=== PATIENT | male | born 1945 | race Caucasian/White ===

== ENCOUNTER 2022-04-05 10:10 | Observation (INO) | payer OTHER, SELFPAY ==
[2022-04-05] VITALS (9 sets, daily range): BP systolic 117–156; BP diastolic 81–102; PULSE 79–118; RESP 14–27; TEMP 36.4–36.6; O2SAT 91–98; BMI 32.3
--- NOTE | 2022-04-05 10:12 | XRR_ITS ---
PROCEDURE INFORMATION: Exam: XR Chest Exam date and time: 04/05/2022 10:45 AM Age: 76 years old Clinical indication: Pain; Angina pectoris; Prior surgery; Surgery type: Heart ablation; Additional info: Chest pain TECHNIQUE: Imaging protocol: Radiologic exam of the chest. Views: 1 view. Total images: 2 COMPARISON: CR Chest 1 [place] [id number] 01/01/2019 10:29 AM FINDINGS: Lungs: Unremarkable. No consolidation. Pleural spaces: Unremarkable. No pleural effusion. No pneumothorax. Heart/Mediastinum: Unremarkable. No cardiomegaly. Bones/joints: Old right rib fractures are evident. Osseous structures are unchanged from the prior exam. XR/XR chest 1V portable [id number] IMPRESSION: No acute cardiopulmonary process.
--- NOTE | 2022-04-05 10:22 | ED_ITS ---
HPI - Chest Pain General: Chief Complaint: Chest Pain Stated Complaint: chest pain Time Seen by Provider: 04/05/22 10:12 Source: patient Mode of arrival: ambulatory Limitations: no limitations History of Present Illness: 76-year-old male presents emergency room with complaint of chest discomfort. He has been having more frequently. A few weeks ago he thought he over exerted himself in the heat later when he seen his primary care doctor they told he had had an VT and set him up for follow-up with cardiology but has not yet been completed. since then he has intermittently had chest discomfort. Initially it was brought on by exertion relieved by rest. More recently he has not noticed anything that makes it better or worse it will come on while at rest and will resolve spontaneously he is still having some discomfort now. He has a known history of atrial fibrillation previously had an ablation. He is on apixaban and was recently restarted on something for rate control I believe after talking to him it is Toprol but we have yet to confirm that. He denies any swelling in his legs or feet he is not had any orthopnea. MD complaint: chest pain Timing of current episode: episodic Prior episodes: Yes Onset: during rest and during exertion Pain location: left chest Pain radiation: none and left shoulder Severity: moderate Quality: tightness, aching and heaviness Relieving factors: rest Exacerbating factors: exertion Associated symptoms: Reports dyspnea; Deny abdominal pain, fever(s), nausea or vomiting Risk Factors: Coronary artery disease risk factors: hypertension Review of Systems Const: Denies: fever(s), chills, body aches, change in appetite, fatigue or malaise ENMT: Denies: throat pain, ear or mastoid pain, nasal discharge or nasal congestion Card: Reports: chest pain; Denies: edema, dyspnea on exertion or orthopnea Resp: Reports: dyspnea; Denies: productive cough or non-productive cough GI: Denies: abdominal pain, nausea, vomiting, hematemesis, coffee ground emesis, diarrhea, constipation, bloating, hematochezia or melena : Denies: flank pain, difficulty urinating, dysuria, urinary frequency or urinary urgency Skin/Breast: Denies: rash or pruritus PFS ED PFSH: Medical History Asthma Atrial fibrillation intermittent Degenerative disc disease Has associated chronic back pain History of cardioversion at time of initial afib diagnosis some years ago as well as in [address] 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 Physical Exam Const: GENERAL APPEARANCE: cooperative and comfortable LION ENTATION/CONSCIOUSNESS: Yes awake, Yes oriented to person, Yes oriented to place and Yes oriented to time HENMT: COMMON NORMALS: normocephalic, atraumatic and hearing grossly normal bilaterally HEAD & SCALP: normocephalic and atraumatic Eye: COMMON NORMALS: Equal, round and reactive pupils present, EOMs intact bilaterally, conjunctivae normal and no scleral icterus CONJUNCTIVA: Yes conjunctivae normal PUPIL: Yes Equal, round and reactive pupils present Resp: COMMON NORMALS: normal respiratory effort, No retractions, No use of accessory muscles and clear to auscultation bilaterally AUSCULTATION: clear to auscultation bilaterally Cardio: COMMON NORMALS: regular rate, regular rhythm and No murmurs present (Cardio) RATE: regular rate RHYTHM: regular rhythm GI: COMMON NORMALS: Soft to palpation and No hepatosplenomegaly present AUSCULTATION: Yes normoactive bowel sounds PALPATION: Yes Soft to palpation, No Tenderness to palpation present (GI), No Guarding due to palpation present (GI) and Yes No hepatosplenomegaly present Extremity: COMMON NORMALS: normal to inspection, capillary refill normal, no clubbing, cyanosis or edema, no calf tenderness and no pedal edema Neuro: SENSORIUM/ORIENTATION: Yes oriented to person, Yes oriented to place and Yes oriented to time Skin: COMMON NORMALS: no rashes or lesions noted GENERAL SKIN EXAM: no rashes or lesions noted Course Vital Signs: Vital signs: Vital Signs Temperature 98.2 F 04/06/22 04:00 Pulse Rate 76 04/06/22 05:49 Respiratory Rate 22 H 04/06/22 04:00 Blood Pressure 103/69 04/06/22 04:00 Pulse Oximetry 97 04/06/22 04:00 Oxygen Delivery Me thod 04/05/22 21:17 MDM - Chest Pain Medical Decision Making EKG labs and imaging reviewed as found on the chart, no ST depression or elevation on his EKGs he is in atrial fibrillation.. His troponins are negative. His symptoms set and progression and changed to the point where he is getting the chest discomfort now or at rest is concerning. Patiently placed on observation to complete to rule out and have a stress test done. Discussed with hospitalist orders written Medical Records I reviewed the patient's medical records. Lab Data I reviewed the patient's lab results. : 04/05/22 10:35 04/05/22 11:08 Radiology Impressions Chest X-Ray 04/05/22 10:12 IMPRESSION: No acute cardiopulmonary process. Laboratory Results WBC 6.1 10^3/uL (4.0-10.0) 04/05/22 10:35 RBC 5.31 10^6/uL (4.1-5.3) H 04/05/22 10:35 Hgb 16.6 g/dL (11.7-16.6) 04/05/22 10:35 Hct 49.3 % (42.0-52.0) 04/05/22 10:35 MCV 92.8 fl (80-94) 04/05/22 10:35 MCH 31.3 pg (28.0-34.0) 04/05/22 10:35 MCHC 33.7 g/dL (30.0-36.0) 04/05/22 10:35 RDW 13.3 % (12.1-15.1) 04/05/22 10:35 Plt Count 178 10^3/cmm (130-400) 04/05/22 10:35 MPV 11.9 fL (7.4-10.4) H 04/05/22 10:35 Neut % (Auto) 61.6 % 04/05/22 10:35 Lymph % (Auto) 26.7 % 04/05/22 10:35 [place] % (Auto) 8.1 % 04/05/22 10:35 Eos % (Auto) 2.6 % 04/05/22 10:35 Baso % (Auto) 0.8 % 04/05/22 10:35 Neut # (Auto) 3.78 10^3/uL (1.8-7.7) 04/05/22 10:35 Lymph # (Auto) 1.6 10^3/uL (0.8-4.8) 04/05/22 10:35 [place] # (Auto) 0.5 10^3/uL (0.2-0.9) 04/05/22 10:35 Eos # (Auto) 0.2 10^3/uL (0.0-0.8) 04/05/22 10:35 Baso # (Auto) 0.1 10^3/uL (0.0-0.1) 04/05/22 10:35 Nucleated RBC % (auto) 0 % 04/05/22 10:35 Nucleated RBCs # 0.0 /100WBC 04/05/22 10:35 Sodium 139 mmol/L (136-145) 04/05/22 11:08 Potassium 4.6 mmol/L (3.5-5.1) 04/05/22 11:08 Chloride 104 mmol/L (98-107) 04/05/22 11:08 Carbon Dioxide 28 mmol/L (22-29) 04/05/22 11:08 Anion Gap 11.6 (5-19) 04/05/22 11:08 BUN 13 mg/dL (8-23) 04/05/22 11:08 Creatinine 1.1 mg/dL (0.7-1.2) 04/05/22 11:08 GFR Calculation Not Reportable 04/05/22 11:08 Glucose 100 mg/dL (65-115) 04/05/22 11:08 Calculated Osmolality 288 mOsm/kg (285-295) 04/05/22 11:08 Calcium 8.9 mg/dL (8.5-10.5) 04/05/22 11:08 Total Bilirubin 0.7 mg/dL (0.15-1.2) 04/05/22 11:08 AST 13 U/L (0-40) 04/05/22 11:08 ALT 12 U/L (0-41) 04/05/22 11:08 Alkaline Phosphatase 61 U/L (40-130) 04/05/22 11:08 Troponin T Baseline 13 ng/L (0-15) 04/05/22 11:08 Troponin T 120 Minute 9.61 ng/L (0-15) 04/05/22 13:00 Delta Troponin T -3.39 ABS# (0-10) L 04/05/22 13:00 Total Protein 6.7 g/dL (6.6-8.7) 04/05/22 11:08 Albumin 3.8 g/dL (3.5-5.2) 04/05/22 11:08 Globulin 2.9 g/dL (1.3-4.6) 04/05/22 11:08 Discharge Plan Discharge Patient Disposition: Placed in Observation Admit Provider: Palak Caba Clinical Impression: Chest pain Qualifiers: Chest pain type: chest pain due to myocardial ischemia Ischemic chest pain type: unstable angina pectoris Qualified Code(s): I20.0 - Unstable angina HTN (hypertension) Qualifiers: Hypertension type: primary hypertension Qualified Code(s): I10 - Essential (primary) hypertension Atrial fibrillation Qualifiers: Atrial fibrillation type: paroxysmal Qualified Code(s): I48.0 - Paroxysmal atrial fibrillation Coding Level of Care Code ED Human Resources Generalist for [facility] Fwd Exam Comprehensive
--- NOTE | 2022-04-05 10:23 | ECG_ITS ---
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 Measurements Intervals [place] Rate: 93 P: [place]: QRS: 13 QRSD: 121 T: 21 QT: 346 QTc: 431 Interpretive Statements ATRIAL FIBRILLATION MODERATE INTRAVENTRICULAR CONDUCTION DELAY [110+ ms QRS DURATION] Compared to ECG 01/01/2019 12:55:21 Intraventricular conduction delay now present Myocardial infarct finding no longer present Electronically Signed On 04-05-2022 17:50:09 CDT by Red Hunt M.D. [id number]
[2022-04-05] MEDS: metoprolol tartrate 25 mg Tablet PO (10:48)
[2022-04-05] MEDS: metoprolol tartrate 1 mg/1 mL SDV 5 mL 5 MG IVP (10:49)
[2022-04-05] MEDS: nitroglycerin 1 gm/inch oint Pkt 1 INCH TOPICAL ×2 (10:50→17:16)
[2022-04-05 10:53] LABS: Basophils # 0.1 10^3/uL (0.0-0.1); Basophils % 0.8 %; Eosinophils # 0.2 10^3/uL (0.0-0.8); Eosinophils % 2.6 %; Hematocrit 49.3 % (42.0-52.0); Hemoglobin 16.6 g/dL (11.7-16.6); Lymphocytes # 1.6 10^3/uL (0.8-4.8); Lymphocytes % 26.7 %; Mean Corpuscular HGB Conc 33.7 g/dL (30.0-36.0); Mean Corpuscular Hemoglobin 31.3 pg (28.0-34.0); Mean Corpuscular Volume 92.8 fl (80-94); Mean Platelet Volume 11.9 fL (7.4-10.4); Monocytes # 0.5 10^3/uL (0.2-0.9); Monocytes % 8.1 %; Neutrophils # 3.78 10^3/uL (1.8-7.7); Neutrophils % 61.6 %; Nucleated Red Blood Cells % 0 %; Platelet Count 178 10^3/cmm (130-400); Red Blood Count 5.31 10^6/uL (4.1-5.3); Red Cell Distribution Width 13.3 % (12.1-15.1); White Blood Count 6.1 10^3/uL (4.0-10.0)
[2022-04-05 11:37] LABS: Alanine Aminotransferase 12 U/L (0-41); Albumin Level 3.8 g/dL (3.5-5.2); Alkaline Phosphatase 61 U/L (40-130); Anion Gap 11.6 (5-19); Aspartate Amino Transferase 13 U/L (0-40); Blood Urea Nitrogen 13 mg/dL (8-23); Calcium 8.9 mg/dL (8.5-10.5); Carbon Dioxide 28 mmol/L (22-29); Chloride 104 mmol/L (98-107); Globulin 2.9 g/dL (1.3-4.6); Glucose 100 mg/dL (65-115); Osmolality Calculated 288 mOsm/kg (285-295); Potassium 4.6 mmol/L (3.5-5.1); Sodium 139 mmol/L (136-145); Total Bilirubin 0.7 mg/dL (0.15-1.2); Total Protein 6.7 g/dL (6.6-8.7)
[2022-04-05 11:41] LABS: Troponin(5th) Baseline 13 ng/L (0-15)
--- NOTE | 2022-04-05 12:29 | ECG_ITS ---
[facility] Test Date: 2022-04-05 Pat Name: Zachary Ahumada Department: Room: Gender: Male Rn Paralegal: : 1945 Requested By: Mirian Lane Order Number: [id number] Gretchen MD: Red Hunt M.D. Measurements Intervals [place] Rate: 78 P: [place]: QRS: 27 QRSD: 105 T: 21 QT: 359 QTc: 410 Interpretive Statements ATRIAL FIBRILLATION Compared to ECG 04/05/2022 10:23:00 Intraventricular conduction delay no longer present Electronically Signed On 04-05-2022 17:52:11 CDT by Red Hunt M.D. [id number]
--- NOTE | 2022-04-05 12:36 | PC.PHAR ---
pt states he takes care of his own medications-[facility] metoprolol succinate er 100mg tab take 50mg daily pt states he didnt know he was suppose to be cutting in half states he has been taking a whole tab daily-pts [facility] med list has zyrtec 10mg daily pt states he hasnt gotten from the [facility] yet-notes are made in the pharmacy comments
[2022-04-05 13:43] LABS: Troponin 5 2HR 9.61 ng/L (0-15)
[2022-04-05 13:49] LABS: Troponin 5 2HR Delta -3.39 ABS# (0-10)
--- NOTE | 2022-04-05 15:43 | PM.HP ---
Providers/Chief Complaint Admitting Physician: Palak Caba MD Primary Care Provider: Dr. Morrison at the [facility] Chief Complaint: chest pain History of Present Illness Zachary Ahumada is a 76 year old male who presented to the emergency room with chief complaint of chest pain. He has actually had chest pain off and on for a couple of weeks. The first episode of chest discomfort occurred when he had been working hard outside in the 100 degree plus heat. He attributed the discomfort at that time to heat exhaustion and even went so far as to put ice on his chest. He had other muscle discomfort at the time. Since then however he has had intermittent episodes of chest pain that has occurred with exertion. The last 3 days it has been much more notable and even started occurring at rest. He describes it as a pain across my chest at 1 point and then at another says at its worst his heart feels like a rock in my chest that is heavy and hard. At its worst it is close to a 10 out of 10 in severity. He had seen his primary care provider last week and was being seen for follow-up today when he reported chest pain to nursing staff. He was subsequently sent here for further evaluation because of the chest discomfort. He did get relief with nitroglycerin. He has a known history of atrial fibrillation that has required cardioversion and eventually ablation in the past. Over the last few weeks he has noted that he was probably back in atrial fibrillation at times but it is just been short-lived in duration. He did admit to being out of Eliquis for about 6 weeks though it was resumed last week. He also stopped taking metoprolol on his own for about a year and a half. That was also resumed about a week ago. He denies any history of hyperlipidemia. He has had an arteriogram in the past once in [place] when he was first diagnosed with atrial fibrillation and another time here. He indicates that he never had any blockages. I do not have access to the arteriogram report from here. I was able to find a stress test from 2016 that did not show any evidence of ischemia as well as a transesophageal echocardiogram that was done in December 2018 revealing normal left ventricular systolic function and an ejection fraction of 55% with moderately increased left atrial size. It appears that was the last time that patient was actually cardioverted. In the past when he has had symptomatic atrial fibrillation it was primarily with shortness of breath, weakness and fatigue. He denies having any symptoms similar to what he has experienced recently with atrial fibrillation in the past. Initial troponin and EKG were unrevealing but given his recent symptomology he is being admitted for further cardiac evaluation. During the course of my evaluation patient had recurrent chest pain rated at to a 7-8/10 across his chest originating on the left side with no radiation elsewhere. Twelve-lead EKG at the time showed atrial fibrillation at 88 bpm with inverted T waves noted in V3 but otherwise unchanged from earlier EKGs today. Pain subsided by the end of my evaluation with Nitropaste on board. Review of Systems Const: Denies: fever(s) or chills Eyes: Denies: change in vision ENMT: Denies: throat pain or nasal congestion Card: Reports: chest pain, palpitations, edema (Sometimes) and dyspnea on exertion; Denies: syncope or orthopnea Resp: Denies: productive cough, non-productive cough or pain on inspiration GI: Denies: abdominal pain, nausea, vomiting, change in bowel habits or hematochezia : Denies: change in urine stream or hematuria Musc: Reports: back pain (Chronic) Skin/Breast: Denies: pruritus or sores Neuro: Reports: headache(s) (With nitroglycerin today but also recently); Denies: difficulty walking or dizziness Psych: Denies: anxiety or depression Scott/Lymph: Denies: easy bruising or easy bleeding Medications/Allergies Home Medications Medication Instructions Recorded Confirmed Last Taken Type albuterol sulfate 90 mcg/actuation 2 puff inhalation QID PRN 11/20/19 04/05/22 Unknown History aerosol inhaler (ProAir HFA) Shortness Of Breath apixaban 5 mg tablet (Eliquis) 5 mg PO BID 11/20/19 04/05/22 04/05/22 08:00 History acetaminophen 500 mg tablet 1,000 mg PO Q6H PRN Pain 04/05/22 04/05/22 Unknown History cetirizine 10 mg tablet (Zyrtec) 10 mg PO DAILY 04/05/22 04/05/22 Unknown History fluticasone propionate 50 2 spray intranasal DAILY PRN 04/05/22 04/05/22 Unknown History mcg/actuation nasal Allergy Symptoms spray,suspension metoprolol succinate 100 mg 75 mg PO QAM 04/05/22 04/05/22 04/05/22 History tablet,extended release 24 hr see pharmacy comment Allergies Allergy/AdvReac Type Severity Reaction Status Date / Time No Known Allergies Allergy Verified 04/05/22 12:35 PFSH Acute PFSH: Medical History (Updated 04/05/22 @ 18:28 by Palak Caba MD) Asthma Atrial fibrillation intermittent Degenerative disc disease Has associated chronic back pain History of cardioversion at time of initial afib diagnosis some years ago as well as in [address] 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 Aware not to take NSAIDs which can increase risk of GI and other bleeding with prescribed anticoagulation. Vitals/I&O/Wt Last Vital Signs Temp 97.9 F 04/05/22 10:20 Pulse 84 04/05/22 14:04 Resp 14 04/05/22 14:04 BP 140/98 04/05/22 14:04 Pulse Ox 95 04/05/22 14:04 O2 Del Method 04/05/22 14:04 Weight last 48 hrs Weight 111.13 kg Physical Exam Narrative: Constitutional: Awake and alert, cooperative, able to provide history HEENT: Normocephalic, atraumatic, extraocular movements are intact, fair dentition, moist membranes Neck: Supple Respiratory: Clear to auscultation bilaterally without any rales rhonchi or wheezes Cardiovascular: Irregularly irregular rhythm, no murmurs, no JVD Abdomen: Soft, nontender, positive bowel sounds Extremities: Trace edema bilateral lower extremities, no calf tenderness, 1+ dorsalis pedis bilaterally Skin: No acute rashes on visible skin surfaces, minor bruising from blood draws today in the right antecubital fossa Neuro: Speech clear, face symmetric, foot pumps and handgrips equal Psych: Normal affect Data : 04/05/22 10:35 04/05/22 11:08 Other Labs: Radiology Impressions Chest X-Ray 04/05/22 10:12 IMPRESSION: No acute cardiopulmonary process. Laboratory Results WBC 6.1 10^3/uL (4.0-10.0) 04/05/22 10:35 RBC 5.31 10^6/uL (4.1-5.3) H 04/05/22 10:35 Hgb 16.6 g/dL (11.7-16.6) 04/05/22 10:35 Hct 49.3 % (42.0-52.0) 04/05/22 10:35 MCV 92.8 fl (80-94) 04/05/22 10:35 MCH 31.3 pg (28.0-34.0) 04/05/22 10:35 MCHC 33.7 g/dL (30.0-36.0) 04/05/22 10:35 RDW 13.3 % (12.1-15.1) 04/05/22 10:35 Plt Count 178 10^3/cmm (130-400) 04/05/22 10:35 MPV 11.9 fL (7.4-10.4) H 04/05/22 10:35 Neut % (Auto) 61.6 % 04/05/22 10:35 Lymph % (Auto) 26.7 % 04/05/22 10:35 [place] % (Auto) 8.1 % 04/05/22 10:35 Eos % (Auto) 2.6 % 04/05/22 10:35 Baso % (Auto) 0.8 % 04/05/22 10:35 Neut # (Auto) 3.78 10^3/uL (1.8-7.7) 04/05/22 10:35 Lymph # (Auto) 1.6 10^3/uL (0.8-4.8) 04/05/22 10:35 [place] # (Auto) 0.5 10^3/uL (0.2-0.9) 04/05/22 10:35 Eos # (Auto) 0.2 10^3/uL (0.0-0.8) 04/05/22 10:35 Baso # (Auto) 0.1 10^3/uL (0.0-0.1) 04/05/22 10:35 Nucleated RBC % (auto) 0 % 04/05/22 10:35 Nucleated RBCs # 0.0 /100WBC 04/05/22 10:35 Sodium 139 mmol/L (136-145) 04/05/22 11:08 Potassium 4.6 mmol/L (3.5-5.1) 04/05/22 11:08 Chloride 104 mmol/L (98-107) 04/05/22 11:08 Carbon Dioxide 28 mmol/L (22-29) 04/05/22 11:08 Anion Gap 11.6 (5-19) 04/05/22 11:08 BUN 13 mg/dL (8-23) 04/05/22 11:08 Creatinine 1.1 mg/dL (0.7-1.2) 04/05/22 11:08 GFR Calculation Not Reportable 04/05/22 11:08 Glucose 100 mg/dL (65-115) 04/05/22 11:08 Calculated Osmolality 288 mOsm/kg (285-295) 04/05/22 11:08 Calcium 8.9 mg/dL (8.5-10.5) 04/05/22 11:08 Total Bilirubin 0.7 mg/dL (0.15-1.2) 04/05/22 11:08 AST 13 U/L (0-40) 04/05/22 11:08 ALT 12 U/L (0-41) 04/05/22 11:08 Alkaline Phosphatase 61 U/L (40-130) 04/05/22 11:08 Troponin T Baseline 13 ng/L (0-15) 04/05/22 11:08 Troponin T 120 Minute 9.61 ng/L (0-15) 04/05/22 13:00 Delta Troponin T -3.39 ABS# (0-10) L 04/05/22 13:00 Total Protein 6.7 g/dL (6.6-8.7) 04/05/22 11:08 Albumin 3.8 g/dL (3.5-5.2) 04/05/22 11:08 Globulin 2.9 g/dL (1.3-4.6) 04/05/22 11:08 A&P Assessment and plan (1) Chest pain: Recent symptoms concerning for unstable angina now occurring at rest as described in HPI Status: Acute Qualifiers: Chest pain type: chest pain due to myocardial ischemia Ischemic chest pain type: unstable angina pectoris Qualified Code(s): I20.0 - Unstable angina (2) Atrial fibrillation: Has had cardioversion on at least 2 occasions and an ablation previously by history. Most recent cardioversion appears to have been in December 2018. Symptoms of symptomatic atrial fibrillation in the past have primarily been shortness of breath, weakness and fatigue. No known history of chest pain with episodes of A. fib. Status: Chronic Qualifiers: Atrial fibrillation type: paroxysmal Qualified Code(s): I48.0 - Paroxysmal atrial fibrillation (3) HTN (hypertension): Restarted on metoprolol succinate last week had been off for about a year by his own choice Status: Chronic Qualifiers: Hypertension type: primary hypertension Qualified Code(s): I10 - Essential (primary) hypertension (4) Chronic anticoagulation: With Eliquis, resumed last week, had been out for 6 weeks Status: Chronic (5) Asthma: Has used an inhaler 2-3 times in the last 3 months Status: Chronic Qualifiers: Asthma severity: mild Asthma persistence: intermittent Asthma complication type: uncomplicated Qualified Code(s): J45.20 - Mild intermittent asthma, uncomplicated Plan Observation admission Serial cardiac enzymes and EKGs Telemetry monitoring If above are unremarkable will proceed with stress testing in the morning Echocardiogram Lipid panel and A1c Check TSH For now we will continue Eliquis Add enteric-coated baby aspirin Statin therapy currently Chronically on beta-blockade with last dose this morning Monitor blood pressures Admits he is not a pill popper and does not like to take medications so will want to limit additional medications to those which are necessary Will need outpatient follow-up with one of the other locomotive inspector, had previously seen Dr. Holden with last appointment in 12/2020 Supportive care otherwise Findings, concerns and plans were discussed with patient in the presence of his and both were given an opportunity to ask questions. Reiterated with patient the importance of following recommended medication regimen for atrial fibrillation management including blood thinner to decrease risk of stroke from atrial fibrillation in particular. Also talked about importance of reading prescription bottles and taking medications as prescribed as he was not following original directions provided to him by his own admission. Full code Attestations Medical Necessity Statement*: Currently anticipate a stay less than two midnights in a patient presenting with chest pain concerning for possibility of unstable angina. He has a known history of intermittent atrial fibrillation status post 2 prior cardioversions and ablation. He had been off of beta-blockade as well as Eliquis for some time with both being resumed about a week ago but have been having episodes of chest pain prior to resumption of these medications. That pain has escalated in frequency and transition from being primarily with exertion to now occurring at rest. No prior history of known obstructive coronary artery disease but has not had any cardiac evaluation for a few years. Plans are as indicated above. Coding Level of Care Code Acute Terminologist for [facility] Diagnoses Chest pain I20.0 Chest pain type: chest pain due to myocardial ischemia Ischemic chest pain type: unstable angina pectoris Atrial fibrillation I48.0 Atrial fibrillation type: paroxysmal HTN (hypertension) I10 Hypertension type: primary hypertension Chronic anticoagulation Z79.01 Asthma J45.20 Asthma severity: mild Asthma persistence: intermittent Asthma complication type: uncomplicated
--- NOTE | 2022-04-05 16:12 | ECG_ITS ---
[facility] Test Date: 2022-04-05 Pat Name: Zachary Ahumada Department: Room: Gender: Male Investigator Claims: : 1945 Requested By: Mirian Lane Order Number: [id number] Gretchen MD: Red Hunt M.D. Measurements Intervals [place] Rate: 88 P: [place]: QRS: 12 QRSD: 111 T: 16 QT: 340 QTc: 413 Interpretive Statements ATRIAL FIBRILLATION LOW QRS VOLTAGE IN PRECORDIAL LEADS [QRS DEFLECTION < 1.0 mV IN CHEST LEADS] MODERATE INTRAVENTRICULAR CONDUCTION DELAY [110+ ms QRS DURATION] Compared to ECG 04/05/2022 12:29:44 Low QRS voltage now present Intraventricular conduction delay now present Electronically Signed On 04-05-2022 17:51:19 CDT by Red Hunt M.D. [id number]
--- NOTE | 2022-04-05 17:02 | ECG_ITS ---
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 Interpretive Statements NAME OF STUDY: LEXISCAN SESTAMIBI STRESS TEST INDICATION: Cp, PROCEDURE: At the baseline, the EKG revealed atrial fibrillation with rapid ventricular rate of 114 bpm. Since the baseline blood pressure was 114/55 mm Hg with a heart rate of 114 beats/min. Lexiscan was infused over a period of 20 seconds. A total of 0.4 milligrams of Lexiscan was infused. The stress phase was continued for a total of 5 minutes. Heart rate at the end of the stress phase was 109 with a blood pressure 59/40. The EKG at the peak infusion revealed no significant changes. Sestamibi was injected 20 seconds after the Lexiscan infusion. Blood pressure at the end of the recovery phase was 89/69 with a heart rate of 95 per minute. CONCLUSION: 1. No significant EKG changes with the LexiScan infusion 2. No LexiScan induced chest pain or cardiac arrhythmia . 3. Lexiscan induced hypotension. 4. Sestamibi/sestamibi perfusion scan pending; see separate report. Electronically Signed On 04-06-2022 9:47:54 CDT by Silverio Amezcua M.D. [id number]
[2022-04-05 18:26] LABS: Troponin 5 6HR 9.91 ng/L (0-15)
[2022-04-05 18:34] LABS: Troponin 5 6HR Delta -3.09 ng/L (0-12)
--- NOTE | 2022-04-05 19:02 | USCV_ITS ---
Zachary Ahumada Age: 76 Gender: M : 1945 Exam Date: 04/05/2022 21:08 Ordering Phys: Palak Caba MD Technologist: BARBARA [place]am [place] [facility] [place] [facility] [place] Indication: chest pain, atrial fibrillation BP: 128 / 94 HR: 82 Rhythm: Atrial fibrillation Technical Quality: Adequate MEASUREMENTS (Male / Female) Normal Values 2D ECHO LV Diastolic Diameter PLAX 4.4 cm 4.2 - 5.9 / 3.9 - 5.3 cm LV Systolic Diameter PLAX 2.9 cm IVS Diastolic Thickness 1.6 cm 0.6 - 1.0 / 0.6 - 0.9 cm IVS Systolic Thickness 1.8 cm LVPW Diastolic Thickness 1.5 cm 0.6 - 1.0 / 0.6 - 0.9 cm LVPW Systolic Thickness 1.8 cm LVOT Diameter 2.1 cm LV Ejection Fraction 2D Teich 63.4 % LV Ejection Fraction MOD 2C 54.6 % LV Ejection Fraction 2C AL 57.0 % LA Diameter 5.3 cm LA Width 5.5 cm LA Height 7.4 cm RA Width 3.7 cm RA Height 5.5 cm Aorta at Sinotubular Diameter 3.1 cm IVC Diameter 1.8 cm M-MODE Aortic Annulus Diameter 3.7 cm LA Ao Ratio MM 1.2 MV E Point Septal Separation 0.4 cm DOPPLER AV Peak Velocity 76.0 cm/s LVOT Peak Velocity 63.0 cm/s AV Area Cont Eq vti 2.4 cm squared AV Area Cont Eq pk 2.9 cm squared MV Peak Velocity 103.0 cm/s MV Area PHT 4.4 cm squared MV E' Velocity 52.5 cm/s Mitral E to MV E' Ratio 9.1 Mitral E to LV E' Lateral Ratio 9.2 Mitral E to LV E' Septal Ratio 9.1 TR Peak Velocity 214.0 cm/s TR Peak Gradient 18.3 mmHg TV Peak E Velocity 59.0 cm/s Right Atrial Pressure 10.0 mmHg Pulmonary Artery Systolic Pressu 28.3 mmHg PV Peak Velocity 64.0 cm/s RV Acceleration Time 0.1 s RV Ejection Time 0.3 s RV AcT/ET 0.3 FINDINGS Left Ventricle Normal left ventricular size, systolic function and wall thickness, with no regional wall motion abnormalities. Rhythm precludes evaluation of diastolic function. Left ventricular ejection fraction is estimated at 55 %. Right Ventricle Normal right ventricular size and systolic function. Normal right ventricular systolic pressure. Right Atrium The right atrium is normal in size. Left Atrium Mildly increased left atrial size. Mitral Valve Structurally normal mitral valve. Moderate mitral valve regurgitation. Aortic Valve Structurally normal aortic valve without significant sclerosis or stenosis. There is no aortic regurgitation. Tricuspid Valve Structurally normal tricuspid valve. Mild tricuspid valve regurgitation. 2 small separate jets Pulmonic Valve Pulmonic valve not well visualized. Pericardium Normal pericardium without effusion. Aorta Normal ascending aorta dimension. IVC The inferior vena cava pulmonary and hepatic veins appear normal. CONCLUSIONS Normal left ventricular size, systolic function and wall thickness, with no regional wall motion abnormalities. Rhythm precludes evaluation of diastolic function. Left ventricular ejection fraction is estimated at 55 %. Mildly increased left atrial size. Structurally normal mitral valve. Moderate mitral valve regurgitation. Dr. Darryl Orr MD (Electronically Signed) Final Date: 06 April 2022 16:15 S
[2022-04-05 20:00] LABS: Thyroid Stimulating Hormone 1.24 uIU/mL (0.27-4.20)
[2022-04-05] MEDS: apixaban 5 mg Tablet PO (20:48)
[2022-04-06] VITALS (8 sets, daily range): BP systolic 103–116; BP diastolic 69–75; PULSE 76–94; RESP 18–22; TEMP 36.7–36.9; O2SAT 94–97
[2022-04-06] MEDS: nitroglycerin 1 gm/inch oint Pkt 1 INCH TOPICAL ×5 (00:52→23:37)
[2022-04-06 05:26] LABS: Chol HDL Ratio 3.04 mg/dL (1.0-5.00); Cholesterol 137 mg/dL (0-200); HDL Cholesterol 45 mg/dL (60-100); LDL Cholesterol Calculated 74 mg/dL (50-129); LDL HDL Ratio 1.64 RATIO (0.00-3.22); Triglycerides 88 mg/dL (0-150)
[2022-04-06 05:30] LABS: Estmated Average Glucose 111; Hemoglobin A1C 5.5 % (4.0-6.0)
[2022-04-06] MEDS: metoprolol succinate ER (24 HR) 100 mg Tablet 75 MG PO (09:02)
[2022-04-06] MEDS: aspirin 81 mg EC Tablet PO (09:03)
[2022-04-06] MEDS: cetirizine 10 mg Tablet PO (09:03)
[2022-04-06] MEDS: regadenoson 0.4 Mg/5 ml Syringe IVP (09:03)
[2022-04-06] MEDS: apixaban 5 mg Tablet PO ×2 (09:03→20:35)
--- NOTE | 2022-04-06 10:47 | PM.PN ---
Subjective Subjective: Patient was seen in his room He was complaining of some discomfort in his chest A. fib RVR heart rate 110 Currently on room air Nonfocal neuro exam Vitals/I&O/Wt Last Vital Signs Temp 98.2 F 04/06/22 04:00 Pulse 76 04/06/22 05:49 Resp 22 H 04/06/22 04:00 BP 103/69 04/06/22 04:00 Pulse Ox 97 04/06/22 04:00 O2 Del Method 04/05/22 21:17 04/05/22 04/06/22 04/06/22 22:59 06:59 14:59 Intake Total 960 / 960 240 / 1200 360 / 360 Output Total 400 / 400 251 / 651 Balance 560 / 560 -11 / 549 360 / 360 Weight last 48 hrs Weight 111.13 kg Physical Exam Narrative: Patient looks euvolemic Awake and alert Pleasant and cooperative Nonfocal neuro exam Currently saturating well on room air Variable S1-S2 A. fib RVR Abdomen soft nontender distended No audible stridor or wheezing Currently on room air Data : 04/05/22 10:35 04/05/22 11:08 A&P Assessment and plan (1) HTN (hypertension): Status: Chronic Qualifiers: Hypertension type: primary hypertension Qualified Code(s): I10 - Essential (primary) hypertension (2) Atrial fibrillation: Status: Chronic Qualifiers: Atrial fibrillation type: paroxysmal Qualified Code(s): I48.0 - Paroxysmal atrial fibrillation (3) Chronic anticoagulation: Status: Chronic (4) Asthma: Status: Chronic Qualifiers: Asthma severity: mild Asthma persistence: intermittent Asthma complication type: uncomplicated Qualified Code(s): J45.20 - Mild intermittent asthma, uncomplicated (5) Chest pain: Status: Acute Qualifiers: Chest pain type: chest pain due to myocardial ischemia Ischemic chest pain type: unstable angina pectoris Qualified Code(s): I20.0 - Unstable angina Plan Unstable angina Patient just came back from stress test We will follow-up with the report Troponin without significant delta A. fib RVR most likely contributing towards his symptoms Currently on room air Continue his Eliquis I will increase the dose of metoprolol to make it 100 mg twice a day if that does not help Cardizem can be added Check D-dimer Stress report is unremarkable Full code Cardiac diet Plan to discharge him tomorrow once heart rate is better Attestations Medical Necessity Statement*: Discharge tomorrow Time Spent in Patient Care: 30 Coding Level of Care Code Acute Marketing Information Analyst for g Fwd Diagnoses HTN (hypertension) I10 Hypertension type: primary hypertension Atrial fibrillation I48.0 Atrial fibrillation type: paroxysmal Chronic anticoagulation Z79.01 Asthma J45.20 Asthma severity: mild Asthma persistence: intermittent Asthma complication type: uncomplicated Chest pain I20.0 Chest pain type: chest pain due to myocardial ischemia Ischemic chest pain type: unstable angina pectoris
[2022-04-06 12:31] LABS: D Dimer 0.35 ug/mIFEU (0-0.59)
--- NOTE | 2022-04-06 12:59 | PC.CHAP ---
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 [] Patient/Family/Request visit [] Outpatient visit [] Follow-up visit [] Physician referral [] Code/Alert [x] Routine visit [] Staff referral [] Actively dying [] Patient sleeping [] Family support [] [] Out of room [] Palliative care [] [] Receiving care in room [] Pre-surgical visit [] Trauma [] Long length of stay [] ICU visit [] Other: Relational/Emotional Strength [] Patient feels connected with others/family/visitors/staff [] Distress [] Loneliness/isolation [] Abandonment Spirituality of Patient [] Person of Ly [] Attends Christian of their Ly [] Believes in Prayer [] Reads Bible or Temple materials [] There are Spiritual issues to be addressed Business Applications Analyst Interventions [x] Prayer [x] Active listening [x] Non-anxious presence [x] Spiritual/emotional support [] Crisis/trauma care [] Spiritual counseling [] Bereavement support [] Provided bereavement packet [] Provided Bible/devotional materials [] Provided toy/stuffed animal, coloring book to patient or family member [] Provided Communion [] Anointing/[place] [] Salvation [x] Completed spiritual assessment [] Other: Impact on Illness or Injury [] Angry [] Fearful [] Anxious [] Often cries [] Exhaustion [] Unable to work [] Unable to attend zoroastrianism [] Unable to walk/stand [] Unable to read [] Unable to drive [] Unable to eat/drink [] Unable to sleep [] Unable to be with family [] Patient intubated [] Other: Summary prayed for healing... 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 Time spent with patient
--- NOTE | 2022-04-06 17:02 | NMCV_ITS ---
NM efren perf SPECT r/s* [id number] Zachary Ahumada Age: 76 Gender: M : 1945 Exam Date: 04/06/2022 06:58 Ordering Phys: Palak Caba MD Technologist: CRISTIANA Mirza Exam Location: [facility] Indications: Chest Pain STRESS TEST Please see separate stress test report in [facility] for full findings IMAGE PROTOCOL Stress/Rest 1 Lexiscan Day Radiopharmaceutical Dose (mCi) Administration Site Administered by Rest: Tc-99m 10.7 IV CRISTIANA Mirza Sestamibi Stress:Tc-99m 32.9 IV CRISTIANA Mirza Sestamibi Rest: 06-Apr-2022 60 Discovery 630 Stress: 06-Apr-2022 45 Discovery 630 0.4mg Lexiscan. Images obtained in supine and prone position. SPECT RESULTS Technical Quality: Excellent Raw Data Analysis: Normal Image Corrections: No attenuation or motion correction applied Summed Stress Score: 0 Summed Rest Score: 0 Summed Difference Score: 0 PERFUSION FINDINGS Uniform myocardial tracer uptake. No significant perfusion abnormalities. FUNCTIONAL RESULTS (calculated via Gated SPECT) Stress Image LV EF (%): 48 Stress EDV (mL):104 TID: 1.15 Stress ESV (mL):54 FUNCTIONAL FINDINGS: Segmental wall motion analysis revealing mild diffuse hypokinesia of the left ventricle IMPRESSIONS 1. Myocardial perfusion imaging revealing uniform myocardial tracer uptake with no significant perfusion abnormalities. 2. Mild diffuse hypokinesia of the left ventricle. 3. LV ejection fraction estimated to be 48%. 4. Mildly dilated LV cavity with an end-systolic volume of 54 ml. 5. Minimally elevated transient ischemic dilatation ratio 1.15. The elevated transient ischemic dilatation ratio, mildly dilated LV cavity and slightly diminished ejection fraction -all could suggest endocardial ischemia. Clinical correlation is recommended No similar previous studies are available for comparison Dr Silverio Amezcua MD [facility] (Electronically Signed) Final Date: 06 April 2022 09:44 S
[2022-04-06] MEDS: atorvastatin 40 mg Tablet PO (20:35)
[2022-04-06] MEDS: metoprolol tartrate 50 mg Tablet 100 MG PO (20:35)
[2022-04-06] MEDS: acetaminophen 500 mg Tablet 1000 MG PO (23:36)
[2022-04-07 04:00] VITALS: BP 109/70; PULSE 85; RESP 20; TEMP 37.1; O2SAT 95
[2022-04-07] MEDS: nitroglycerin 1 gm/inch oint Pkt 1 INCH TOPICAL (04:59)
[2022-04-07 05:14] LABS: Basophils % 0.4 %; Eosinophils # 0.2 10^3/uL (0.0-0.8); Eosinophils % 2.5 %; Hematocrit 48.3 % (42.0-52.0); Hemoglobin 16.2 g/dL (11.7-16.6); Lymphocytes # 2.1 10^3/uL (0.8-4.8); Lymphocytes % 25.8 %; Mean Corpuscular HGB Conc 33.5 g/dL (30.0-36.0); Mean Corpuscular Volume 92.4 fl (80-94); Mean Platelet Volume 12.2 fL (7.4-10.4); Monocytes # 0.7 10^3/uL (0.2-0.9); Monocytes % 8.4 %; Neutrophils # 5.05 10^3/uL (1.8-7.7); Neutrophils % 62.7 %; Nucleated Red Blood Cells % 0 %; Platelet Count 192 10^3/cmm (130-400); Red Blood Count 5.23 10^6/uL (4.1-5.3); Red Cell Distribution Width 12.7 % (12.1-15.1); White Blood Count 8.1 10^3/uL (4.0-10.0)
[2022-04-07 05:25] VITALS: PULSE 84
[2022-04-07 05:36] LABS: Anion Gap 14.5 (5-19); Blood Urea Nitrogen 16 mg/dL (8-23); Carbon Dioxide 27 mmol/L (22-29); Chloride 105 mmol/L (98-107); Glucose 101 mg/dL (65-115); Osmolality Calculated 295 mOsm/kg (285-295); Potassium 4.5 mmol/L (3.5-5.1); Sodium 142 mmol/L (136-145)
[2022-04-07 07:38] VITALS: PULSE 89; RESP 16; O2SAT 96
[2022-04-07 08:00] VITALS: BP 128/86; PULSE 89; RESP 17; TEMP 36.5; O2SAT 96
--- NOTE | 2022-04-07 09:29 | PC.NURSE ---
Dr. Cho verbally stated to stop the nitro patch.
[2022-04-07] MEDS: apixaban 5 mg Tablet PO (09:51)
[2022-04-07] MEDS: metoprolol tartrate 50 mg Tablet 100 MG PO (09:51)
[2022-04-07] MEDS: cetirizine 10 mg Tablet PO (09:52)
[2022-04-07] MEDS: aspirin 81 mg EC Tablet PO (09:52)
--- NOTE | 2022-04-07 11:36 | PM.DCS ---
Discharge Providers Date of Admission: 04/05/22 15:07 Date of Discharge: April 07, 2022 Attending Provider at Admission: Palak Caba MD Attending Provider at Discharge: Aaron Cho MD Primary Care Provider: Mike Arzate Diagnoses at Discharge Discharge Diagnosis (1) HTN (hypertension): Status: Chronic Qualifiers: Hypertension type: primary hypertension Qualified Code(s): I10 - Essential (primary) hypertension (2) Atrial fibrillation: Status: Chronic Qualifiers: Atrial fibrillation type: paroxysmal Qualified Code(s): I48.0 - Paroxysmal atrial fibrillation Permanent problem details: intermittent (3) Chronic anticoagulation: Status: Chronic Permanent problem details: eliquis due to afib (4) Asthma: Status: Chronic Qualifiers: Asthma severity: mild Asthma persistence: intermittent Asthma complication type: uncomplicated Qualified Code(s): J45.20 - Mild intermittent asthma, uncomplicated (5) Chest pain: Status: Acute Qualifiers: Chest pain type: chest pain due to myocardial ischemia Ischemic chest pain type: unstable angina pectoris Qualified Code(s): I20.0 - Unstable angina Reason for Visit Reason for Visit: chest pain Hospital Course Hospital Course 76-year male who carries history of his history of A. fib, on Eliquis, stopped taking his metoprolol, he has been noncompliant with his medication presented with chest pain, cardiac stress test was unremarkable, echo did not show remarkable changes, D-dimer 0.3, he remained afebrile, hemodynamically stable, he was put on metoprolol 100 mg twice daily which improved his heart rate. He remained in A. fib rhythm. I will discharge him on metoprolol 100 mg twice daily along Eliquis and albuterol refills. Patient will follow up with his PCP. His chest discomfort most likely was related to tachyarrhythmia Physical Exam Narrative: Awake and alert Nonfocal neuro exam Euvolemic Abdomen soft Currently saturating well on room air Pleasant cooperative EOMI, PERRLA Discharge Data Studies Completed and Pending Completed Studies During Hospitalization Category Date Time Status Sestamibi Stress Test Request Routine Exams 04/05/22 17:02 Completed XR chest 1V portable [id number] Urgent Exams 04/05/22 10:12 Completed NM efren perf SPECT r/s* [id number] Routine Nuc Med 04/06/22 17:02 Completed CV. echo complete* [id number] Routine Ultrasound 04/05/22 19:02 Completed Radiology Impressions Chest X-Ray 04/05/22 10:12 IMPRESSION: No acute cardiopulmonary process. Laboratory Results WBC 8.1 10^3/uL (4.0-10.0) 04/07/22 04:40 RBC 5.23 10^6/uL (4.1-5.3) 04/07/22 04:40 Hgb 16.2 g/dL (11.7-16.6) 04/07/22 04:40 Hct 48.3 % (42.0-52.0) 04/07/22 04:40 MCV 92.4 fl (80-94) 04/07/22 04:40 MCH 31.0 pg (28.0-34.0) 04/07/22 04:40 MCHC 33.5 g/dL (30.0-36.0) 04/07/22 04:40 RDW 12.7 % (12.1-15.1) 04/07/22 04:40 Plt Count 192 10^3/cmm (130-400) 04/07/22 04:40 MPV 12.2 fL (7.4-10.4) H 04/07/22 04:40 Neut % (Auto) 62.7 % 04/07/22 04:40 Lymph % (Auto) 25.8 % 04/07/22 04:40 [place] % (Auto) 8.4 % 04/07/22 04:40 Eos % (Auto) 2.5 % 04/07/22 04:40 Baso % (Auto) 0.4 % 04/07/22 04:40 Neut # (Auto) 5.05 10^3/uL (1.8-7.7) 04/07/22 04:40 Lymph # (Auto) 2.1 10^3/uL (0.8-4.8) 04/07/22 04:40 [place] # (Auto) 0.7 10^3/uL (0.2-0.9) 04/07/22 04:40 Eos # (Auto) 0.2 10^3/uL (0.0-0.8) 04/07/22 04:40 Baso # (Auto) 0.0 10^3/uL (0.0-0.1) 04/07/22 04:40 Nucleated RBC % (auto) 0 % 04/07/22 04:40 Nucleated RBCs # 0.0 /100WBC 04/07/22 04:40 D-Dimer 0.35 ug/mIFEU (0-0.59) 04/06/22 11:46 Sodium 142 mmol/L (136-145) 04/07/22 04:40 Potassium 4.5 mmol/L (3.5-5.1) 04/07/22 04:40 Chloride 105 mmol/L (98-107) 04/07/22 04:40 Carbon Dioxide 27 mmol/L (22-29) 04/07/22 04:40 Anion Gap 14.5 (5-19) 04/07/22 04:40 BUN 16 mg/dL (8-23) 04/07/22 04:40 Creatinine 1.1 mg/dL (0.7-1.2) 04/07/22 04:40 GFR Calculation Not Reportable 04/07/22 04:40 Glucose 101 mg/dL (65-115) 04/07/22 04:40 Estimat Average Glucose 111 04/06/22 04:49 Hemoglobin A1c 5.5 % (4.0-6.0) 04/06/22 04:49 Calculated Osmolality 295 mOsm/kg (285-295) 04/07/22 04:40 Calcium 9.0 mg/dL (8.5-10.5) 04/07/22 04:40 Total Bilirubin 0.7 mg/dL (0.15-1.2) 04/05/22 11:08 AST 13 U/L (0-40) 04/05/22 11:08 ALT 12 U/L (0-41) 04/05/22 11:08 Alkaline Phosphatase 61 U/L (40-130) 04/05/22 11:08 Troponin T Baseline 13 ng/L (0-15) 04/05/22 11:08 Troponin T 120 Minute 9.61 ng/L (0-15) 04/05/22 13:00 Delta Troponin T -3.39 ABS# (0-10) L 04/05/22 13:00 Troponin T Hi Sens 6Hr 9.91 ng/L (0-15) 04/05/22 15:54 Troponin T Hi Sens 6Hr Delta -3.09 ng/L (0-12) L 04/05/22 15:54 Total Protein 6.7 g/dL (6.6-8.7) 04/05/22 11:08 Albumin 3.8 g/dL (3.5-5.2) 04/05/22 11:08 Globulin 2.9 g/dL (1.3-4.6) 04/05/22 11:08 Triglycerides 88 mg/dL (0-150) 04/06/22 04:49 Cholesterol 137 mg/dL (0-200) 04/06/22 04:49 LDL Cholesterol, Calc 74 mg/dL (50-129) 04/06/22 04:49 HDL Cholesterol 45 mg/dL (60-100) L 04/06/22 04:49 LDL/HDL Ratio 1.64 RATIO (0.00-3.22) 04/06/22 04:49 Cholesterol/HDL Ratio 3.04 mg/dL (1.0-5.00) 04/06/22 04:49 TSH 1.24 uIU/mL (0.27-4.20) 04/05/22 15:54 Vitals Last Vital Signs Temp 97.7 F 04/07/22 08:00 Pulse 89 04/07/22 08:00 Resp 17 04/07/22 08:00 BP 128/86 04/07/22 08:00 Pulse Ox 96 04/07/22 08:00 O2 Del Method 04/07/22 08:00 Discharge Plan Discharge Patient Disposition: Home Condition: Stable Prescriptions: New metoprolol tartrate 50 mg Tablet 100 mg PO BID@0900,2100 Qty: 120 4RF Continued Zyrtec 10 mg Tablet 10 mg PO DAILY Tylenol Ex Str Rapid Release 500 mg Tablet 1,000 mg PO Q6H PRN (Reason: Pain) Flonase 50 mcg/actuation [place],Suspension 2 spray INTRANASAL DAILY PRN (Reason: Allergy Symptoms) Rx Instructions: administer into each nostril Eliquis 5 mg tablet 5 mg PO BID Qty: 60 3RF albuterol sulfate [ProAir HFA] 90 mcg/actuation HFA aerosol inhaler 2 puff INHALATION QID PRN (Reason: Shortness Of Breath) Qty: 8.5 4RF Discontinued metoprolol succinate 100 mg Tablet Extended Release 24 Hr 75 mg PO QAM Discharge Orders: Discharge Order (Routine); Ordered 04/07/22 Ordered By: Aaron Cho Referrals: Jalyn Perry MD [Referring] - 2 weeks Discharge Diet: Cardiac Discharge Activity: Increase activity as tolerated Patient Instructions: Opioid Safety Discharge Attestations Time Spent in Discharge Care*: less than 30 min Quality Metrics Clinical Quality Measures [ No reported AMI, CVA or VTE this stay] Coding Level of Care Code Acute Chg FW DC note Diagnoses HTN (hypertension) I10 Hypertension type: primary hypertension Atrial fibrillation I48.0 Atrial fibrillation type: paroxysmal Chronic anticoagulation Z79.01 Asthma J45.20 Asthma severity: mild Asthma persistence: intermittent Asthma complication type: uncomplicated Chest pain I20.0 Chest pain type: chest pain due to myocardial ischemia Ischemic chest pain type: unstable angina pectoris
[2022-04-07 12:00] VITALS: BP 110/70; PULSE 76; RESP 17; TEMP 36.6; O2SAT 96
--- NOTE | 2022-04-07 14:22 | PC.NURSE ---
Discussed discharge, medications and follow up appointments with patient and spouse at 1248. Verbalized understanding.
[2022-04-07 14:25] VITALS: BP 110/70; PULSE 76; RESP 17; TEMP 36.6; O2SAT 96
== END 2022-04-07 13:00 | disposition home or self-care (01) ==
LOC: ER 15:06 → MEDSURG 16:36 → MS 2A 19:17 → MEDSURG 19:18
PROVIDERS: Physician Assistant; Admitting Provider Hospitalist; Emergency Provider Family Medicine; PCP Family Medicine; Visit Provider Internal Medicine
DX: I20.0 Unstable angina (principal); I10 Essential (primary) hypertension; I48.0 Paroxysmal atrial fibrillation; Z79.01 Long term (current) use of anticoagulants; J45.20 Mild intermittent asthma, uncomplicated; Z91.14 Patient's other noncompliance with medication regimen; Z87.891 Personal history of nicotine dependence
CPT/HCPCS: 36415; 71045; 78452; 80048; 80053; 80061; 83036; 84443; 84484; 85025; 85378; 93005; 93306; 96374; 99285; A9500; G0378; J2785; J3490

== ENCOUNTER 2022-04-15 09:59 | Inpatient (IN) | payer OTHER, MEDICARE, SELFPAY ==
[2022-04-15] VITALS (12 sets, daily range): BP systolic 111–176; BP diastolic 68–92; PULSE 70–96; RESP 14–30; TEMP 36.4–36.6; O2SAT 95–98; BMI 32.3
--- NOTE | 2022-04-15 10:20 | ECG_ITS ---
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 Measurements Intervals [place] Rate: 77 P: [place]: QRS: 33 QRSD: 98 T: -4 QT: 352 QTc: 399 Interpretive Statements ATRIAL FIBRILLATION LOW QRS VOLTAGE IN PRECORDIAL LEADS [QRS DEFLECTION < 1.0 mV IN CHEST LEADS] ABNORMAL RHYTHM ECG Compared to ECG 04/15/2022 10:10:54 No significant changes Electronically Signed On 04-15-2022 15:40:29 CDT by Silverio Amezcua M.D. [id number]
--- NOTE | 2022-04-15 10:20 | XR_ITS ---
WS: [id number] Exam: XR chest 1V portable [id number] Date/Time of Exam: 04/15/2022 10:24 AM Reason For Exam: chest pain Comparison 04/05/2022. Mild infiltrate in the right upper lobe. Left lung is clear. Heart size is top limits normal. The med iastinum is not widened. No pleural effusions. The lungs are fully inflated. Several old right rib fr actures. XR/XR chest 1V portable [id number] IMPRESSION: 1. Mild right upper lobe infiltrate. Pneumonia is not excluded. 2. No other significant finding.
--- NOTE | 2022-04-15 10:36 | W.ED.CHESTPA ---
HPI - Chest Pain General: Chief Complaint: Chest Pain Stated Complaint: chest pain/left side pain Time Seen by Provider: 04/15/22 10:20 Source: patient Mode of arrival: ambulatory History of Present Illness: 76-year-old male returns to the emergency room with chest discomfort. He was recently seen on April 05 and admitted for A. fib and chest discomfort. Echocardiogram was normal nuclear stress test showed an elevated 3 times daily ratio but otherwise no signs of ischemia. He was discharged home on anticoagulant and metoprolol. He returns today complaining of chest discomfort MD complaint: chest discomfort Onset (ago): hour(s) Timing of current episode: episodic Prior episodes: Yes Onset: during rest Pain location: left chest Quality: tightness, aching and heaviness Relieving factors: nothing Exacerbating factors: nothing Associated symptoms: Deny abdominal pain, diaphoresis, dyspnea, fever(s), leg edema, nausea, palpitations, sense of impending doom, syncope or vomiting Treatment prior to arrival: none Review of Systems Const: Denies: fever(s) or diaphoresis ENMT: Denies: throat pain, ear or mastoid pain, nasal discharge or nasal congestion Card: Denies: palpitations or syncope Resp: Denies: dyspnea GI: Denies: abdominal pain, nausea or vomiting : Denies: flank pain, dysuria, urinary frequency or urinary urgency Skin/Breast: Denies: rash or pruritus PFSH ED PFSH: Medical History Asthma Atrial fibrillation intermittent Chest pain Chronic anticoagulation eliquis due to afib Degenerative disc disease Has associated chronic back pain History of cardioversion at time of initial afib diagnosis some years ago as well as in [address] 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 Physical Exam Const: GENERAL APPEARANCE: cooperative and comfortable ORIENTATION/CONSCIOUSNESS: Yes awake, Yes oriented to person, Yes oriented to place and Yes oriented to time HENMT: COMMON NORMALS: normocephalic, atraumatic and hearing grossly normal bilaterally HEAD & SCALP: normocephalic and atraumatic Resp: COMMON NORMALS: normal respiratory effort, No retractions, No use of accessory muscles and clear to auscultation bilaterally AUSCULTATION: clear to auscultation bilaterally Cardio: COMMON NORMALS: regular rate and No murmurs present (Cardio) RATE: regular rate RHYTHM: abnormal rhythm irregularly irregular GI: COMMON NORMALS: Soft to palpation and No hepatosplenomegaly present AUSCULTATION: Yes normoactive bowel sounds PALPATION: Yes Soft to palpation, No Tenderness to palpation present (GI), No Guarding due to palpation present (GI) and Yes No hepatosplenomegaly present Extremity: COMMON NORMALS: normal to inspection, capillary refill normal, no clubbing, cyanosis or edema, no calf tenderness and no pedal edema Neuro: SENSORIUM/ORIENTATION: Yes oriented to person, Yes oriented to place and Yes oriented to time Skin: COMMON NORMALS: no rashes or lesions noted GENERAL SKIN EXAM: no rashes or lesions noted Course Vital Signs: Vital signs: Vital Signs Temperature 97.8 F 04/15/22 10:06 Pulse Rate 78 04/15/22 16:37 Respiratory Rate 14 04/15/22 10:20 Blood Pressure 122/74 04/15/22 16:37 Pulse Oximetry 98 04/15/22 16:37 Oxygen Delivery Ar thod 04/15/22 14:26 MDM - Chest Pain Medical Decision Making Patient still having chest pain on arrival here with concerning radiation pattern. Discussed with cardiology. Patient recently had a stress test which was negative other than elevated 3 times daily ratio. They recommended admission for completion of the rule out and further evaluation of increased aggressive medical management versus angiography. Admit to hospitalist cardiology consult. Medical Records I reviewed the patient's medical records. Lab Data I reviewed the patient's lab results. : 04/15/22 10:42 04/15/22 10:42 Radiology Impressions Chest X-Ray 04/15/22 10:20 IMPRESSION: 1. Mild right upper lobe infiltrate. Pneumonia is not excluded. 2. No other significant finding. Laboratory Results WBC 6.2 10^3/uL (4.0-10.0) 04/15/22 10:42 RBC 5.22 10^6/uL (4.1-5.3) 04/15/22 10:42 Hgb 16.4 g/dL (11.7-16.6) 04/15/22 10:42 Hct 48.4 % (42.0-52.0) 04/15/22 10:42 MCV 92.7 fl (80-94) 04/15/22 10:42 MCH 31.4 pg (28.0-34.0) 04/15/22 10:42 MCHC 33.9 g/dL (30.0-36.0) 04/15/22 10:42 RDW 13.0 % (12.1-15.1) 04/15/22 10:42 Plt Count 208 10^3/cmm (130-400) 04/15/22 10:42 MPV 11.8 fL (7.4-10.4) H 04/15/22 10:42 Neut % (Auto) 60.5 % 04/15/22 10:42 Lymph % (Auto) 26.1 % 04/15/22 10:42 [place] % (Auto) 8.7 % 04/15/22 10:42 Eos % (Auto) 3.7 % 04/15/22 10:42 Baso % (Auto) 0.8 % 04/15/22 10:42 Neut # (Auto) 3.76 10^3/uL (1.8-7.7) 04/15/22 10:42 Lymph # (Auto) 1.6 10^3/uL (0.8-4.8) 04/15/22 10:42 [place] # (Auto) 0.5 10^3/uL (0.2-0.9) 04/15/22 10:42 Eos # (Auto) 0.2 10^3/uL (0.0-0.8) 04/15/22 10:42 Baso # (Auto) 0.1 10^3/uL (0.0-0.1) 04/15/22 10:42 Nucleated RBC % (auto) 0 % 04/15/22 10:42 Nucleated RBCs # 0.0 /100WBC 04/15/22 10:42 Sodium 137 mmol/L (136-145) 04/15/22 10:42 Potassium 4.5 mmol/L (3.5-5.1) 04/15/22 10:42 Chloride 103 mmol/L (98-107) 04/15/22 10:42 Carbon Dioxide 24 mmol/L (22-29) 04/15/22 10:42 Anion Gap 14.5 (5-19) 04/15/22 10:42 BUN 15 mg/dL (8-23) 04/15/22 10:42 Creatinine 1.1 mg/dL (0.7-1.2) 04/15/22 10:42 GFR Calculation Not Reportable 04/15/22 10:42 Glucose 97 mg/dL (65-115) 04/15/22 10:42 Calculated Osmolality 285 mOsm/kg (285-295) 04/15/22 10:42 Calcium 9.3 mg/dL (8.5-10.5) 04/15/22 10:42 Total Bilirubin 0.7 mg/dL (0.15-1.2) 04/15/22 10:42 AST 15 U/L (0-40) 04/15/22 10:42 ALT 12 U/L (0-41) 04/15/22 10:42 Alkaline Phosphatase 60 U/L (40-130) 04/15/22 10:42 Troponin T Baseline 12 ng/L (0-15) 04/15/22 10:42 Troponin T 120 Minute 10.28 ng/L (0-15) 04/15/22 12:51 Delta Troponin T -1.72 ABS# (0-10) L 04/15/22 12:51 Total Protein 6.4 g/dL (6.6-8.7) L 04/15/22 10:42 Albumin 3.8 g/dL (3.5-5.2) 04/15/22 10:42 Globulin 2.6 g/dL (1.3-4.6) 04/15/22 10:42 Discharge Plan Discharge Patient Disposition: Placed in Observation Clinical Impression: Chest pain, HTN (hypertension), Atrial fibrillation Condition: Stable Prescriptions: No Action acetaminophen 500 mg Tablet 1,000 mg PO Q6H PRN (Reason: Pain) fluticasone propionate 50 mcg/actuation [place],Suspension 2 spray INTRANASAL DAILY PRN (Reason: Allergy Symptoms) Rx Instructions: administer into each nostril Eliquis 5 mg tablet 5 mg PO BID Qty: 60 3RF albuterol sulfate [ProAir HFA] 90 mcg/actuation HFA aerosol inhaler 2 puff INHALATION QID PRN (Reason: Shortness Of Breath) Qty: 8.5 4RF cetirizine 10 mg Tablet 10 mg PO DAILY PRN (Reason: Allergy Symptoms) metoprolol succinate 100 mg Tablet Extended Release 24 Hr 100 mg PO BID Referrals: Mike Arzate [Primary Care Provider] - Patient Instructions: Opioid Safety Coding Level of Care Code ED Store Planner for Marthag Fwd Exam Detailed
[2022-04-15 11:07] LABS: Basophils # 0.1 10^3/uL (0.0-0.1); Basophils % 0.8 %; Eosinophils # 0.2 10^3/uL (0.0-0.8); Eosinophils % 3.7 %; Hematocrit 48.4 % (42.0-52.0); Hemoglobin 16.4 g/dL (11.7-16.6); Lymphocytes # 1.6 10^3/uL (0.8-4.8); Lymphocytes % 26.1 %; Mean Corpuscular HGB Conc 33.9 g/dL (30.0-36.0); Mean Corpuscular Hemoglobin 31.4 pg (28.0-34.0); Mean Corpuscular Volume 92.7 fl (80-94); Mean Platelet Volume 11.8 fL (7.4-10.4); Monocytes # 0.5 10^3/uL (0.2-0.9); Monocytes % 8.7 %; Neutrophils # 3.76 10^3/uL (1.8-7.7); Neutrophils % 60.5 %; Nucleated Red Blood Cells % 0 %; Platelet Count 208 10^3/cmm (130-400); Red Blood Count 5.22 10^6/uL (4.1-5.3); White Blood Count 6.2 10^3/uL (4.0-10.0)
[2022-04-15 11:18] LABS: Alanine Aminotransferase 12 U/L (0-41); Albumin Level 3.8 g/dL (3.5-5.2); Alkaline Phosphatase 60 U/L (40-130); Anion Gap 14.5 (5-19); Aspartate Amino Transferase 15 U/L (0-40); Blood Urea Nitrogen 15 mg/dL (8-23); Calcium 9.3 mg/dL (8.5-10.5); Carbon Dioxide 24 mmol/L (22-29); Chloride 103 mmol/L (98-107); Globulin 2.6 g/dL (1.3-4.6); Glucose 97 mg/dL (65-115); Osmolality Calculated 285 mOsm/kg (285-295); Potassium 4.5 mmol/L (3.5-5.1); Sodium 137 mmol/L (136-145); Total Bilirubin 0.7 mg/dL (0.15-1.2); Total Protein 6.4 g/dL (6.6-8.7)
[2022-04-15 11:19] LABS: Troponin(5th) Baseline 12 ng/L (0-15)
--- NOTE | 2022-04-15 12:20 | ECG_ITS ---
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 Measurements Intervals [place] Rate: 88 P: SD: QRS: 56 QRSD: 92 T: -7 QT: 337 QTc: 408 Interpretive Statements ATRIAL FIBRILLATION LOW QRS VOLTAGE IN PRECORDIAL LEADS [QRS DEFLECTION < 1.0 mV IN CHEST LEADS] ABNORMAL QRS-T ANGLE [QRS-T AXIS DIFFERENCE > 60] Compared to ECG 04/05/2022 16:33:52 Intraventricular conduction delay no longer present Electronically Signed On 04-15-2022 15:55:14 CDT by Silverio Amezcua M.D. [id number]
[2022-04-15 13:16] LABS: Troponin 5 2HR 10.28 ng/L (0-15)
[2022-04-15] MEDS: nitroglycerin 1 gm/inch oint Pkt 0.5 INCH TOPICAL ×2 (13:35→19:59)
[2022-04-15 13:36] LABS: Troponin 5 2HR Delta -1.72 ABS# (0-10)
--- NOTE | 2022-04-15 14:32 | P.CONIM_ITS ---
Providers/Reason For Consult Consulting Physician/Specialty*: Dr. Rodriguez, Cardiology Reason for Consult*: Chest pain Primary Care Provider: Mike Arzate History of Present Illness History of Present Illness Zachary Ahumada is a 76 year old male with past medical history significant for A. fib with RVR status post electrical cardioversion at an outside hospital s/p A. fib ablation by Dr. Lauglhin. He had an angiogram done in the past probably in 2013 at [place] and he was told that it was negative. He was admitted with chest pain and A. fib with RVR recently and was discharged home on metoprolol and Eliquis. Echocardiogram showed normal ejection fraction without significant valvular abnormality. Recent stress test with no ischemia. He continued to have intermittent chest pains on and off. Today, the pain is different as per patient with radiation to neck and shoulder and pain 7-8/10 in intensity. I do not see he has ever been on antiarrhythmics. Patient's complaints with A. fib even before has been chest pains. EKG today showed A. fib with controlled ventricular response. Troponin T 12-> 10-->9. Review of Systems General: Reports: 10 or more systems reviewed and unremarkable except in HPI and below Const: Denies: fever(s) or diaphoresis ENMT: Denies: throat pain, ear or mastoid pain, nasal discharge or nasal congestion Card: Reports: chest pain; Denies: palpitations, edema, swelling of feet/ankles or syncope Resp: Denies: dyspnea GI: Denies: abdominal pain, nausea, vomiting, hematochezia or melena : Denies: flank pain, dysuria, urinary frequency or urinary urgency Skin/Breast: Denies: rash or pruritus Neuro: Denies: headache(s), frequent falls or dizziness [place]/Lymph: Denies: petechiae or purpura Medications/Allergies Home Medications Medication Instructions Recorded Confirmed Last Taken Type acetaminophen 500 mg tablet 1,000 mg PO Q6H PRN Pain 04/05/22 04/15/22 Unknown History fluticasone propionate 50 2 spray intranasal DAILY PRN 04/05/22 04/15/22 Unknown History mcg/actuation nasal Allergy Symptoms spray,suspension albuterol sulfate 90 mcg/actuation 2 puff inhalation QID PRN 04/07/22 04/15/22 Unknown Rx aerosol inhaler (ProAir HFA) Shortness Of Breath #8.5 grams apixaban 5 mg tablet (Eliquis) 5 mg PO BID #60 tabs 04/07/22 04/15/22 04/15/22 Rx cetirizine 10 mg tablet 10 mg PO DAILY PRN Allergy Symptoms 04/15/22 04/15/22 Unknown History metoprolol succinate 100 mg 100 mg PO BID 04/15/22 04/15/22 04/15/22 History tablet,extended release 24 hr Allergies Allergy/AdvReac Type Severity Reaction Status Date / Time No Known Allergies Allergy Verified 04/15/22 11:06 PFSH Acute PFSH: Medical History (Updated 04/15/22 @ 19:27 by Sarah Rodriguez MD) Asthma Atrial fibrillation intermittent Chest pain Chronic anticoagulation eliquis due to afib Degenerative disc disease Has associated chronic back pain History of cardioversion at time of initial afib diagnosis some years ago as well as in [address] 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 No pallor or icterus. NECK: central trachea, No JVD, No carotid bruit. CARDIOVASCULAR SYSTEM: S1-S2 regular. No murmur rubs or gallops. RESPIRATORY SYSTEM: Chest clear to auscultation. No wheezes rhonchi or rubs heard. No use of accessory muscles. ABDOMEN: Soft, nontender and nondistended. Normal bowel sounds present. EXTREMITIES: No cyanosis or clubbing. No edema. No signs of chronic venous insufficiency. PACKAGE COLLECTOR: Patient is alert oriented ?3. No focal neurological deficits. SKIN: Normal turgor and temperature. No breakdown, rash or nail changes noted. PSYCH: Normal insight and judgment. No suicidal or homicidal ideations. Data : 04/15/22 10:42 04/15/22 10:42 Other data: TTE (04/06/22) CONCLUSIONS ?Normal left ventricular size, systolic function and wall ?thickness, with no regional wall motion abnormalities. Rhythm ?precludes evaluation of diastolic function. Left ventricular ?ejection fraction is estimated at 55 %. ?Mildly increased left atrial size. ?Structurally normal mitral valve. Moderate mitral valve ?regurgitation. Lexiscan sestamibi MPI (04/06/22) IMPRESSIONS ?1.? Myocardial perfusion imaging revealing uniform myocardial tracer uptake ?with no significant perfusion abnormalities. ?2.? Mild diffuse hypokinesia of the left ventricle. ?3.? LV ejection fraction estimated to be 48%. ?4.? Mildly dilated LV cavity with an end-systolic volume of 54 ml. ?5.? Minimally elevated transient ischemic dilatation ratio 1.15. ?The elevated transient ischemic dilatation ratio, mildly dilated LV cavity and ?slightly diminished ejection fraction -all could suggest endocardial ischemia.? ?Clinical correlation is recommended ?No similar previous studies are available for comparison A&P Assessment and plan (1) Chest pain: CAD risk factors of age, sex and possibly family h/o CAD in mother (massive heart attack per patient in her 70's) -CP different in nature than before -normal recent stress test -I believe to settle the question we will have to do LHC. -Hold Eliquis and plan for LHC possibly on Monday. Status: Acute Qualifiers: Chest pain type: chest pain due to myocardial ischemia Ischemic chest pain type: unstable angina pectoris Qualified Code(s): I20.0 - Unstable angina (2) Atrial fibrillation: I will also start him on sotalol 80 mg BID -with plan for possibly DELON/CV on Monday. -Patient will need EKG 2 hours after each sotalol dose. Status: Acute Qualifiers: Atrial fibrillation type: paroxysmal Qualified Code(s): I48.0 - P aroxysmal atrial fibrillation (3) HTN (hypertension): well controlled Status: Acute Qualifiers: Hypertension type: primary hypertension Qualified Code(s): I10 - Essential (primary) hypertension (4) Degenerative disc disease: Status: Acute (5) Obesity (BMI 30.0-34.9): Status: Acute Consult Attestations Time Spent in Patient Care: Greater than 35 minutes Coding Level of Care Code Acute Matrix Inspector for g Fwd Diagnoses Chest pain I20.0 Chest pain type: chest pain due to myocardial ischemia Ischemic chest pain type: unstable angina pectoris Atrial fibrillation I48.0 Atrial fibrillation type: paroxysmal HTN (hypertension) I10 Hypertension type: primary hypertension Degenerative disc disease Obesity (BMI 30.0-34.9) E66.9
--- NOTE | 2022-04-15 16:20 | ECG_ITS ---
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 Measurements Intervals [place] Rate: 84 P: RI: QRS: 8 QRSD: 98 T: 6 QT: 363 QTc: 429 Interpretive Statements ATRIAL FIBRILLATION Compared to ECG 04/15/2022 10:41:04 No significant changes Electronically Signed On 04-16-2022 13:19:32 CDT by Sarah Rodriguez M.D. [id number]
--- NOTE | 2022-04-15 17:02 | P.HP_ITS ---
Providers/Chief Complaint Primary Care Provider: Mike Arzate Chief Complaint: chest pain/left side pain History of Present Illness Zachary Ahumada is a 76 year old male with past medical history of atrial fibrillation on Eliquis at home, history of prior cardioversion, prior ablation in 2018, hypertension, came in with chief complaint of ongoing left-sided chest pain squeezing type radiating to left arm and neck, started this morning, got relieved with Nitropaste in the ER, denies any associated diaphoresis, palpitation at that time ,shortness of breath, fever cough, nausea vomiting. Patient was recently discharged from the hospital when he presented with chest pain, after he stopped taking his metoprolol, for his history of A. fib , nuclear stress test done at that time No significant perfusion abnormality. Chest pain at that time has been attributed to A. fib. Upon arrival in the ER he was worked up for above-mentioned complaint: X-ray chest: No acute infiltrates no effusion EKG: A. fib, with controlled rate Pertinent labs: WBC 6.2, H&H 16/ 48 PLT : 208 , serum sodium : 137 ,potassium: 4.5 , BUN serum creatinine:15/1.1 Troponin trend: 12,10. Review of Systems General: Reports: 10 or more systems reviewed and unremarkable except in HPI and below Const: Denies: fever(s), chills, body aches, change in appetite or diaphoresis Card: Denies: edema, swelling of feet/ankles, dyspnea on exertion, orthopnea or leg pain with exertion Resp: Denies: dyspnea, productive cough, wheezing or pain on inspiration GI: Denies: abdominal pain, nausea, vomiting, diarrhea or constipation : Denies: flank pain or difficulty urinating Musc: Denies: back pain, extremity pain or extremity swelling Neuro: Denies: headache(s), difficulty walking or confusion Medications/Allergies Home Medications Medication Instructions Recorded Confirmed Last Taken Type acetaminophen 500 mg tablet 1,000 mg PO Q6H PRN Pain 04/05/22 04/15/22 Unknown History fluticasone propionate 50 2 spray intranasal DAILY PRN 04/05/22 04/15/22 Unknown History mcg/actuation nasal Allergy Symptoms spray,suspension albuterol sulfate 90 mcg/actuation 2 puff inhalation QID PRN 04/07/22 04/15/22 Unknown Rx aerosol inhaler (ProAir HFA) Shortness Of Breath #8.5 grams apixaban 5 mg tablet (Eliquis) 5 mg PO BID #60 tabs 04/07/22 04/15/22 04/15/22 Rx cetirizine 10 mg tablet 10 mg PO DAILY PRN Allergy Symptoms 04/15/22 04/15/22 Unknown History metoprolol succinate 100 mg 100 mg PO BID 04/15/22 04/15/22 04/15/22 History tablet,extended release 24 hr Allergies Allergy/AdvReac Type Severity Reaction Status Date / Time No Known Allergies Allergy Verified 04/15/22 11:06 PFSH Acute PFSH: Medical History Asthma Atrial fibrillation intermittent Chest pain Chronic anticoagulation eliquis due to afib Degenerative disc disease Has associated chronic back pain History of cardioversion at time of initial afib diagnosis some years ago as well as in [address] 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 Vitals/I&O/Wt Last Vital Signs Temp 97.8 F 04/15/22 10:06 Pulse 78 04/15/22 16:56 Resp 16 04/15/22 16:56 BP 111/69 04/15/22 16:56 Pulse Ox 98 04/15/22 16:37 O2 Del Method 04/15/22 14:26 Weight last 48 hrs Weight 111.13 kg Physical Exam Const: COMMON NORMALS: patient oriented x3 HENMT: COMMON NORMALS: normocephalic and atraumatic Resp: COMMON NORMALS: normal respiratory effort, No retractions, No use of accessory muscles and clear to auscultation bilaterally EFFORT & INSPECTION: Yes symmetric chest movement AUSCULTATION: clear to auscultation bilaterally Cardio: COMMON NORMALS: No gallops present (Cardio), No murmurs present (Cardio), No rub (Cardio) and Peripheral pulses 2+ throughout RATE: regular rate RHYTHM: regular rhythm HEART SOUNDS: S1 normal heart sound present and S2 normal heart sound present PERIPHERAL PULSES: Peripheral pulses 2+ th roughout GI: COMMON NORMALS: Normal to inspection, nondistended, normoactive bowel sounds present, Soft to palpation, non-tender, No hepatosplenomegaly present and no masses AUSCULTATION: Yes normoactive bowel sounds PALPATION: Yes Soft to palpation and Yes No hepatosplenomegaly present RECTAL EXAM: Yes deferred Extremity: COMMON NORMALS: no clubbing, cyanosis or edema and no pedal edema Neuro: COMMON NORMALS: patient oriented x3 Data : 04/15/22 10:42 04/15/22 10:42 A&P Assessment and plan (1) HTN (hypertension): Status: Acute (2) Atrial fibrillation: Status: Acute (3) Chest pain: Status: Acute Plan 76 year old male with past medical history of atrial fibrillation on Eliquis at home, history of prior cardioversion, prior ablation in 2018, hypertension, came in with chief complaint of ongoing left-sided chest pain squeezing type radiating to left arm and neck, started this morning, got relieved with Nitropaste in the ER, denies any associated diaphoresis, palpitation at that time ,shortness of breath, fever cough, nausea vomiting. Assessment: Chest pain A. fib Hypertension Plan: Patient has recent nuclear stress test done: No significant perfusion abnormality. Recent 2D echo: Normal left ventricular size, systolic function and wall ?thickness, with no regional wall motion abnormalities. Rhythm precludes evaluation of diastolic function. Left ventricular ejection fraction is e stimated at 55 %. Mildly increased left atrial size. Structurally normal mitral valve. Moderate mitral valve regurgitation. Current plan is to start patient on sotalol, continue therapeutic anticoagulation with Lovenox, hold Eliquis for now, anticipating may be possible ischemia work-up. Continue Nitropaste. CODE STATUS: Full code DVT prophylaxis : Not needed on therapeutic Lovenox. Attestations Medical Necessity Statement*: Patient needs to be in hospital for the management of chest pain. Anticipated LOS Greater then 2 midnights. Time Spent in Patient Care: Greater than 35 minutes (>than 50% of time spent in counselling and/or direct pt care on unit) . Coding Level of Care Code Acute Badger Distiller Operator for Chg Fwd Exam Detailed Diagnoses HTN (hypertension) I10 Atrial fibrillation I48.91 Chest pain R07.9
[2022-04-15 17:46] LABS: Troponin 5 6HR 9.49 ng/L (0-15)
[2022-04-15 18:00] LABS: Troponin 5 6HR Delta -2.59 ng/L (0-12)
[2022-04-15] MEDS: enoxaparin 120 mg/0.8 mL Syringe 110 MG SUBCUT (19:10)
[2022-04-15] MEDS: sotalol 80 mg Tablet PO (19:59)
--- NOTE | 2022-04-15 22:04 | ECG_ITS ---
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 Measurements Intervals [place] Rate: 83 P: [place]: QRS: 2 QRSD: 101 T: 11 QT: 379 QTc: 447 Interpretive Statements ATRIAL FIBRILLATION LOW QRS VOLTAGE IN PRECORDIAL LEADS [QRS DEFLECTION < 1.0 mV IN CHEST LEADS] ABNORMAL RHYTHM ECG Compared to ECG 04/15/2022 16:45:57 Low QRS voltage now present Electronically Signed On 04-16-2022 13:18:49 CDT by Sarah Rodriguez M.D. [id number]
[2022-04-16] VITALS (135 sets, daily range): BP systolic 91–126; BP diastolic 52–93; PULSE 77–113; RESP 12–33; TEMP 36.4–37; O2SAT 94–99
[2022-04-16 00:12] LABS: Add Urine Microscopic? NO; Charge for UA Resulting for Rev
[2022-04-16 00:16] LABS: Bilirubin Urine Neg (Negative); Blood Urine Neg (Negative); Glucose Urine UA Norm (Normal); Ketones Urine Negative (Negative); Leukocyte Esterase Urine Negative (Negative); Nitrate Urine Negative (Negative); Protein Urine Neg (Negative); Specific Gravity, Urine 1.015 (1.005-1.030); Urine Appearance Clear (CLEAR); Urine Color Yellow (Yellow); Urobilinogen Urine Neg (Negative); pH Urine 6 (5-7)
[2022-04-16] MEDS: nitroglycerin 1 gm/inch oint Pkt 0.5 INCH TOPICAL ×3 (03:34→20:47)
--- NOTE | 2022-04-16 03:36 | PC.NURSE ---
Pt complained to another RN of sharp chest pain, 03/23. This nurse reported into room, and pt reports that pain is the same qualities as earlier, and is starting to decrease in intensity. Pt's left chest and side are sore to touch. Pt reports that nitro paste helps to ease pain.
--- NOTE | 2022-04-16 04:06 | PC.NURSE ---
Pt now resting quietly in bed with eyes closed. Respirations are even and unlabored. No signs or symptoms of pain at this time.
[2022-04-16 04:13] LABS: Basophils % 0.6 %; Eosinophils # 0.3 10^3/uL (0.0-0.8); Eosinophils % 4.1 %; Hematocrit 47.8 % (42.0-52.0); Hemoglobin 15.9 g/dL (11.7-16.6); Lymphocytes # 2.2 10^3/uL (0.8-4.8); Lymphocytes % 31.3 %; Mean Corpuscular HGB Conc 33.3 g/dL (30.0-36.0); Mean Corpuscular Hemoglobin 31.7 pg (28.0-34.0); Mean Corpuscular Volume 95.2 fl (80-94); Mean Platelet Volume 11.9 fL (7.4-10.4); Monocytes # 0.5 10^3/uL (0.2-0.9); Monocytes % 7.8 %; Neutrophils # 3.86 10^3/uL (1.8-7.7); Neutrophils % 56.1 %; Nucleated Red Blood Cells % 0 %; Platelet Count 189 10^3/cmm (130-400); Red Blood Count 5.02 10^6/uL (4.1-5.3); Red Cell Distribution Width 13.1 % (12.1-15.1); White Blood Count 6.9 10^3/uL (4.0-10.0)
[2022-04-16 04:35] LABS: Alanine Aminotransferase 11 U/L (0-41); Albumin Level 3.7 g/dL (3.5-5.2); Alkaline Phosphatase 54 U/L (40-130); Anion Gap 14.5 (5-19); Aspartate Amino Transferase 16 U/L (0-40); Blood Urea Nitrogen 17 mg/dL (8-23); Calcium 9.4 mg/dL (8.5-10.5); Carbon Dioxide 30 mmol/L (22-29); Chloride 104 mmol/L (98-107); Creatinine Clr Calc Pharmacy 70.3679; Globulin 2.3 g/dL (1.3-4.6); Glucose 74 mg/dL (65-115); Osmolality Calculated 298 mOsm/kg (285-295); Potassium 4.5 mmol/L (3.5-5.1); Sodium 144 mmol/L (136-145)
[2022-04-16] MEDS: enoxaparin 120 mg/0.8 mL Syringe 110 MG SUBCUT ×2 (05:47→17:56)
[2022-04-16] MEDS: sotalol 80 mg Tablet PO ×2 (07:55→20:47)
--- NOTE | 2022-04-16 08:10 | PM.PN ---
Subjective Subjective: Patient was seen and examined this morning continue to complain chest tightness, relieved with nitro paste. Continue to be in A.Fib. Medications: Medication Review Details: Generic Name Dose Route Start Last Admin Trade Name Luz PRN Reason Stop Dose Admin Enoxaparin Sodium 110 mg 04/15/22 18:00 04/16/22 05:47 Enoxaparin 120 M g/0.8 Ml Syringe SUBCUT 110 mg Q12H BHAVIN Administration Nitroglycerin 0.5 inch 04/15/22 20:00 04/16/22 03:34 Nitroglycerin 1 Gm/Inch Oint Pkt TOPICAL 0.5 inch Q8H BHAVIN Administration Sotalol HCl 80 mg 04/15/22 20:00 04/16/22 07:55 Sotalol 80 Mg Ta blet PO 80 mg BHAVIN Administration Vitals/I&O/Wt Last Vital Signs Temp 97.6 F 04/16/22 03:35 Pulse 96 04/16/22 06:00 Resp 16 04/16/22 06:00 BP 103/81 04/16/22 06:00 Pulse Ox 97 04/16/22 06:00 O2 Del Method 04/16/22 06:00 04/15/22 04/16/22 04/16/22 22:59 06:59 14:59 Intake Total 450 / 450 Output Total 400 / 400 Balance 50 / 50 Weight last 48 hrs Weight 113.988 kg Weight 113.988 kg Weight 111.13 kg Physical Exam Const: COMMON NORMALS: patient oriented x3 HENMT: COMMON NORMALS: normocephalic and atraumatic HEAD & SCALP: normocephalic and atraumatic Resp: COMMON NORMALS: normal respiratory effort, No retractions, No use of accessory muscles and clear to auscultation bilaterally EFFORT & INSPECTION: Yes symmetric chest movement AUSCULTATION: clear to auscultation bilaterally Cardio: COMMON NORMALS: regular rate, regular rhythm, S1 normal heart sound present, S2 normal heart sound present, No gallops present (Cardio), No murmurs present (Cardio), No rub (Cardio) and Peripheral pulses 2+ throughout RATE: regular rate RHYTHM: regular rhythm HEART SOUNDS: S1 normal heart sound present and S2 normal heart sound present PERIPHERAL PULSES: Peripheral pulses 2+ throughout GI: COMMON NORMALS: Normal to inspection, nondistended, normoactive bowel sounds present, Soft to palpation, non-tender, No hepatosplenomegaly present and no masses AUSCULTATION: Yes normoactive bowel sounds PALPATION: Yes Soft to palpation and Yes No hepatosplenomegaly present RECTAL EXAM: Yes deferred Extremity: COMMON NORMALS: no clubbing, cyanosis or edema and no pedal edema Neuro: COMMON NORMALS: patient oriented x3 Data : 04/16/22 02:35 04/16/22 02:35 A&P Assessment and plan (1) HTN (hypertension): Status: Acute (2) Atrial fibrillation: Status: Acute (3) Chest pain: Status: Acute Plan 76 year old male with past medical history of atrial fibrillation on Eliquis at home, history of prior cardioversion, prior ablation in 2018, hypertension, came in with chief complaint of ongoing left-sided chest pain squeezing type radiating to left arm and neck, started this morning, got relieved with Nitropaste in the ER, denies any associated diaphoresis, palpitation at that time ,shortness of breath, fever cough, nausea vomiting. Assessment: Chest pain A. fib Hypertension Plan: Patient has recent nuclear stress test done: No significant perfusion abnormality. Recent 2D echo: Normal left ventricular size, systolic function and wall ?thickness, with no regional wall motion abnormalities. Rhythm precludes evaluation of diastolic function. Left ventricular ejection fraction is estimated at 55 %. Mildly increased left atrial size. Structurally normal mitral valve. Moderate mitral valve regurgitation. Current plan is to start patient on sotalol, continue therapeutic anticoagulation with Lovenox, hold Eliquis for now, anticipating may be possible ischemia work-up. Continue Nitropaste. CODE STATUS: Full code DVT prophylaxis : Not needed on therapeutic Lovenox. Attestations Medical Necessity Statement*: Patient is in hospital for the management of chest pain. Coding Level of Care Code Acute Package Worker for [facility] Fwd Exam Detailed Diagnoses HTN (hypertension) I10 Atrial fibrillation I48.91 Chest pain R07.9
--- NOTE | 2022-04-16 10:00 | ECG_ITS ---
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 Measurements Intervals [place] Rate: 90 P: [place]: QRS: 2 QRSD: 98 T: 11 QT: 365 QTc: 447 Interpretive Statements ATRIAL FIBRILLATION LOW QRS VOLTAGE IN PRECORDIAL LEADS Compared to ECG 04/15/2022 22:04:10 No significant changes Electronically Signed On 04-16-2022 13:17:45 CDT by Sarah Rodriguez M.D. [id number]
--- NOTE | 2022-04-16 10:20 | PM.PN ---
Subjective Subjective: Patient states he had episode of chest pain this morning that got relieved after NTG patch No events on telemetry Medications: Reviewed: Yes Vitals/I&O/Wt Last Vital Signs Temp 98.2 F 04/16/22 08:00 Pulse 98 04/16/22 08:55 Resp 25 H 04/16/22 08:55 BP 118/87 04/16/22 08:55 Pulse Ox 97 04/16/22 08:00 O2 Del Method 04/16/22 08:00 04/15/22 04/16/22 04/16/22 22:59 06:59 14:59 Intake Total 450 / 450 360 / 360 Output Total 400 / 400 Balance 50 / 50 360 / 360 Weight last 48 hrs Weight 251 lb 4.8 oz Weight 251 lb 4.8 oz Weight 245 lb Physical Exam Narrative: GENERAL: obese man sitting in bedin no acute distress HEENT: Extraocular movement intact. No pallor or icterus. NECK: central trachea, No JVD, No carotid bruit. CARDIOVASCULAR SYSTEM: S1-S2 regular. No murmur rubs or gallops. RESPIRATORY SYSTEM: Chest clear to auscultation. No wheezes rhonchi or rubs heard. No use of accessory muscles. ABDOMEN: Soft, nontender and nondistended. Normal bowel sounds present. EXTREMITIES: No cyanosis or clubbing. No edema. No signs of chronic venous insufficiency. WEB PRESS OPERATOR: Patient is alert oriented ?3. No focal neurological deficits. SKIN: Normal turgor and temperature. No breakdown, rash or nail changes noted. PSYCH: Normal insight and judgment. No suicidal or homicidal ideations. Data : 04/16/22 02:35 04/16/22 02:35 A&P Assessment and plan (1) Chest pain: CAD risk factors of age, sex and possibly family h/o CAD in mother (massive heart attack per patient in her 70's). He is non smoker and does not chew tobacco. No DM-2 or hyperlipidemia. -CP different in nature than before -normal recent stress test -I believe to settle the question we will have to do LHC. My suspicion for CAD is not that high -Hold Eliquis and plan for LHC possibly tomorrow. Status: Acute (2) Atrial fibrillation: I will also start him on sotalol 80 mg BID -with plan for possibly DELON/CV on Monday. -Patient will need EKG 2 hours after each sotalol dose. -EKG with acceptable QT/QTc intervals. Status: Acute (3) HTN (hypertension): well controlled Status: Acute (4) Degenerative disc disease: Status: Acute (5) Obesity (BMI 30.0-34.9): Status: Acute Attestations Medical Necessity Statement*: needs hospital stay for chest pain and atrial fibrillation Time Spent in Patient Care: 16 - 35 minutes Coding Level of Care Code Acute Boot Trimmer for [facility] Fwd Diagnoses Chest pain R07.9 Atrial fibrillation I48.91 HTN (hypertension) I10 Degenerative disc disease Obesity (BMI 30.0-34.9) E66.9
[2022-04-16] MEDS: aspirin 325 mg EC Tablet PO (10:40)
--- NOTE | 2022-04-16 16:46 | PC.NURSE ---
SHift Summary: Uneventful shift Patient has rested in bed for most of the day, but has frequently been up to use the restroom, for meals, and to ambulate in the pierson. Patient's heart rate has varied between afib and aflutter. Usually in the 80's-low 100's. Cath is planned for tommorow. Pulses hae been marked, right wrist, and bilateral groin has been shaved. NPO at midnight.
--- NOTE | 2022-04-16 16:48 | PC.NURSE ---
Patient being transferred to [facility] room 276 bed 2. Report given to MASOOD king.
--- NOTE | 2022-04-16 18:46 | PC.NURSE ---
received into [facility] 276-2 from icu via w/c at 1755.report received.pt is alert and oriented x 4.afib on monitor at controlled rate.vss.denies cp at present.oriented to room environment.instructed to notify staff for any cp,sob,sweating,or for any concerns at all.pt verb understanding of instructions
--- NOTE | 2022-04-16 23:00 | ECG_ITS ---
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 Measurements Intervals [place] Rate: 90 P: [place]: QRS: 22 QRSD: 96 T: 15 QT: 383 QTc: 471 Interpretive Statements ATRIAL FIBRILLATION LOW QRS VOLTAGE IN PRECORDIAL LEADS [QRS DEFLECTION < 1.0 mV IN CHEST LEADS] Compared to ECG 04/16/2022 10:01:55 No significant changes Electronically Signed On 04-17-2022 13:13:55 CDT by Sarah Rodriguez M.D. [email or web address].[employer]/store/[id number] f
[2022-04-17] VITALS (72 sets, daily range): BP systolic 94–128; BP diastolic 68–91; PULSE 74–114; RESP 10–27; TEMP 36.8–37; O2SAT 90–99
[2022-04-17] MEDS: diphenhydrAMINE 50 mg Capsule PO (05:46)
[2022-04-17] MEDS: sodium chloride 0.9% 1,000 ML 50 ML IV ×2 (05:46→09:36)
[2022-04-17 06:22] LABS: Basophils % 0.4 %; Eosinophils # 0.2 10^3/uL (0.0-0.8); Eosinophils % 3.5 %; Hematocrit 47.8 % (42.0-52.0); Lymphocytes # 1.8 10^3/uL (0.8-4.8); Lymphocytes % 26.1 %; Mean Corpuscular HGB Conc 33.5 g/dL (30.0-36.0); Mean Corpuscular Hemoglobin 31.3 pg (28.0-34.0); Mean Corpuscular Volume 93.5 fl (80-94); Mean Platelet Volume 11.4 fL (7.4-10.4); Monocytes # 0.6 10^3/uL (0.2-0.9); Monocytes % 8.8 %; Neutrophils # 4.22 10^3/uL (1.8-7.7); Neutrophils % 60.9 %; Nucleated Red Blood Cells % 0 %; Platelet Count 184 10^3/cmm (130-400); Red Blood Count 5.11 10^6/uL (4.1-5.3); Red Cell Distribution Width 12.8 % (12.1-15.1); White Blood Count 6.9 10^3/uL (4.0-10.0)
[2022-04-17 06:43] LABS: Alanine Aminotransferase 12 U/L (0-41); Alkaline Phosphatase 57 U/L (40-130); Anion Gap 12.2 (5-19); Aspartate Amino Transferase 14 U/L (0-40); Blood Urea Nitrogen 17 mg/dL (8-23); Calcium 8.9 mg/dL (8.5-10.5); Carbon Dioxide 26 mmol/L (22-29); Chloride 105 mmol/L (98-107); Globulin 2.3 g/dL (1.3-4.6); Glucose 82 mg/dL (65-115); Osmolality Calculated 289 mOsm/kg (285-295); Potassium 4.2 mmol/L (3.5-5.1); Sodium 139 mmol/L (136-145); Total Bilirubin 0.8 mg/dL (0.15-1.2); Total Protein 6.3 g/dL (6.6-8.7)
--- NOTE | 2022-04-17 06:49 | XACV_ITS ---
Exam Room: 2 Ht: 185 cm Wt: 112 kg BSA: 2.44 m2 Gender: Male : 1945 Any Known Allergies: No known allergies Exam Priority: Routine Procedure(s): Procedure Description: Diagnostic procedure Procedure Description: Coronary Angiography Diagnostic Cath Status: Elective Diagnostic Findings * Coronary angiography shows right dominance. * No disease noted in the Left Main, Left Anterior Descending, Ramus intermedius, Right, or Circumflex coronary arteries. * DAMIEN 2 flow noted in LAD artery. Conclusions 1. No disease noted in the Left Main, Left Anterior Descending, Ramus intermedius, Right, or Circumflex coronary arteries. 2. DAMIEN 2 flow noted in LAD artery. Recommendations * Continue current medical management and risk factor modification. Pressures Phase:Rest AO : 101 / 68 ( 80 ) @ 9:02:00 AM Clinical Evaluation EBL: 5mL-10mL Procedural Details Procedure Consent Obtained. Pre-Procedure Time Out. Identified patient by full name and date of as verbalized by the patient/guarantor. Does the consent match the physician's order: Yes. Accurate & Complete Informed Consent: Yes. Inpatient/Outpatient History & Physical on Chart: Yes. If H&P is completed, is and addenduem needed: No. Visualize and Verify Site with Patient/Guarantor: N/A. Relevant Radiology Images available: Yes. The risks, benefits, and alternatives of sedation and/or procedure were discussed by physician. The patient agrees to continue. [facility] Clinical Fraility Score: 3: Managing Well. Bullet Assembly Press Operator Indications: Worsening Angina. Chest Pain Symptom Assessment: Atypical Angina. Cardiovascular Instability: No. Procedure started. Correct patient, site and procedure confirmed by cath team. PERRLA. Strong, equal hand sealer operator bilaterally. Lungs clear x 5 lobes. IV Site on Arrival: 20 gauge in the right anticubital. IV Fluids: 0.9% NaCl at KVO. 0 mL infused prior to labor operator. Pre Procedural Pulses: bilateral dorsalis pedis was 3+. Pre Procedural Pulses: bilateral posterior tibial was 3+. Pre Procedural Pulses: bilateral radial was 3+. Oxygen started at 2liters/min via nasal canula. right groin was prepped with chloroprep then draped in the usual sterile fashion. right radial was prepped with chloroprep then draped in the usual sterile fashion. Physician notified. Baseline sample Acquired. HR: 98 BPM. Equipment: 6F - Radial. Cardiac Cath Pack. ACIST Manifold Kit Model BT 2000. Heparinized Saline (2 units/mL), 1000 mL bag. Physician arrived. Physician scrubbed in. Immediate Pre-Procedure Time Out. Correct Patient: Yes; Correct Procedure: Yes; Correct Site: Yes; Correct Patient Position: Yes; Correct Supplies: Yes; Dried Flammable Prep: Yes; Blood Products Available: N/A;. Lidocaine 1% infiltrated to the right radial. Arterial access obtained. A 5 [place] citizen TIG catheter in over the standard J wire. Unable to advance catheter, standard J wire out. Hand injection of the right SC performed. 0.035 260cm Stiff angled glidewire in through the TIG catheter. Glidewire and Catheter out. Will move to Femoral access. A TR Band was successful obtaining hemostatsis at the Right Radial artery insertion site. Lidocaine 1% infiltrated to the right groin. Arterial access obtained. A 5 [place] citizen JL4 catheter in over the standard J wire. Multiple views taken of left coronary artery. Catheter removed over the standard J wire. A 5 [place] citizen JR4 catheter in over wire. Multiple views taken of right coronary artery. Unable to redirect the catheter to the LV. Catheter removed over the standard J wire. Dr. Rodriguez scrubbed out. Sheath(s) sutured into position with 2-0 silk and sterile 4x4's and Op-site applied over the site. No oozing or signs and symptoms of hematoma noted. Arterial sheath flushed and connected to tranducer and pressure bag with heparinized saline. A Suture was successful obtaining hemostatsis at the Right Femoral artery insertion site. Post Procedure: Pulses reassessed and unchanged. PERRLA. Strong, equal hand sealer operator bilaterally. No VTE prophylaxis required. Medication's Wasted: Lidocaine 1% = 3 mL. Medication's Wasted: Nitro = 49.8 mg. Medication's Wasted: Heparin = 4000 units. Total IV fluids: 93 mL. Post-op diagnosis: Normal coronaries. Complications: none. Estimated blood loss: 5mL-10mL. Responsiveness - Normal response to verbal stimuli; alert and oriented, PERRLA. Airway - Unaffected, no intervention required; spontaneous ventilation. Circulation: W/N/L, pulses unchanged. Nausea/Vomiting: No. Patient transferred by bed to [facility]. Vital chart was stopped. Procedure completed. Access Site Site: Right Radial artery Sheath Size: 6 Fr Hemostasis Method: TR Band Hemostasis Success: Successful Site: Right Femoral artery Sheath Size: 6 Fr Hemostasis Method: Suture Hemostasis Success: Successful Procedure Medications Start: 7:32 AM Stop: 7:32 AM Medication: Versed Amount: 1 mg Route: I.V. Start: 7:32 AM Stop: 7:32 AM Medication: Fentanyl Amount: 50 mcg Route: I.V. Start: 7:36 AM Stop: 7:36 AM Medication: Versed Amount: 1 mg Route: I.V. Start: 7:42 AM Stop: 7:42 AM Medication: Nitrogylcerin Amount: 200 mcg Route: I.A. Start: 7:56 AM Stop: 7:56 AM Medication: Versed Amount: 1 mg Route: I.V. I, the attending physician, have reviewed and verified all procedure medications. Yes, all medications given per verbal order History/Risk Factors Hypertension: Yes Dyslipidemia: No Peripheral Arterial Disease (PAD): No Myocardial Infarction (MA): No Obesity: Yes Renal Disease: No Tobacco Use: Former Prior Interventions PCI: No CABG: No Valve Surgery: No Report Signatures Finalized by Sarah Rodriguez MD on 04/26/2022 04:26 PM
--- NOTE | 2022-04-17 07:29 | W.PM.OPSUD ---
Surgery/Procedure H&P Update DATE OF PROCEDURE: April 17, 2022 DATE H&P PERFORMED: 04/15/22 H&P UPDATE INFORMATION: I have reviewed H&P completed within last 30 days, I have examined patient prior to procedure and No changes to prior documentation PREOP DIAGNOSIS: Worsening chset pain PRIMARY INDICATION FOR PROCEDURE: Worsening chest pain PLANNED PROCEDURE: Operation Date: 04/17/22 07:30 Proposed Procedures p Cardiac Catheterization(Left) - Sarah Rodriguez MD PATIENT REASSESSED PRIOR TO SEDATION, WITH NO CHANGE NOTED: Yes PHYSICAL EXAM: alert, oriented x 3, clear to auscultation bilaterally and regular rate & rhythm AIRWAY EVAL/ANESTHESIA PLAN: normal airway, ASA III, Monitored Anesthesia, Local Anesthesia, Risks, benefits & alternatives of sedation and/or procedure discussed and Patient agrees to continue as planned
[2022-04-17] MEDS: sodium chloride 0.9% 1,000 ML 100 ML IV (08:35)
--- NOTE | 2022-04-17 08:36 | PM.PN ---
Subjective Subjective: He underwent LHC this morning that shows no obstructive CAD. TIMI2 flow noted in LAD. Medications: Reviewed: Yes Vitals/I&O/Wt Last Vital Signs Temp 98.2 F 04/17/22 04:00 Pulse 94 04/17/22 06:00 Resp 12 04/17/22 04:00 BP 94/76 04/17/22 04:00 Pulse Ox 94 04/17/22 04:00 O2 Del Method 04/17/22 04:00 04/16/22 04/17/22 04/17/22 22:59 06:59 14:59 Intake Total 720 / 1720 Balance 720 / 1720 Weight last 48 hrs Weight 248 lb 4.8 oz Weight 251 lb 4.8 oz Weight 251 lb 4.8 oz Weight 245 lb Physical Exam Narrative: GENERAL: obese man sitting in bedin no acute distress HEENT: Extraocular movement intact. No pallor or icterus. NECK: central trachea, No JVD, No carotid bruit. CARDIOVASCULAR SYSTEM: S1-S2 irregular. No murmur rubs or gallops. RESPIRATORY SYSTEM: Chest clear to auscultation. No wheezes rhonchi or rubs heard. No use of accessory muscles. ABDOMEN: Soft, nontender and nondistended. Normal bowel sounds present. EXTREMITIES: No cyanosis or clubbing. No edema. No signs of chronic venous insufficiency. BUSINESS CONTINUITY COORDINATOR: Patient is alert oriented ?3. No focal neurological deficits. SKIN: Normal turgor and temperature. No breakdown, rash or nail changes noted. PSYCH: Normal insight and judgment. No suicidal or homicidal ideations. Data : 04/17/22 05:15 04/17/22 05:15 A&P Assessment and plan (1) Chest pain: CAD risk factors of age, sex and possibly family h/o CAD in mother (massive heart attack per patient in her 70's). He is non smoker and does not chew tobacco. No DM-2 or hyperlipidemia. -CP different in nature than before -normal recent stress test. No obstructive CAD on LHC Status: Acute (2) Atrial fibrillation: I will also start him on sotalol 80 mg BID -with plan for possibly DELON/CV tomorrow. -Patient will need EKG 2 hours after each sotalol dose. -EKG with acceptable QT/QTc intervals. Status: Acute (3) HTN (hypertension): well controlled Status: Acute (4) Degenerative disc disease: Status: Acute (5) Obesity (BMI 30.0-34.9): Status: Acute Attestations Medical Necessity Statement*: needs hospital stay for atrial fibrillation and sotalol monitoring Time Spent in Patient Care: 16 - 35 minutes Coding Level of Care Code Acute Client Resource Specialist for [facility] Fwd Diagnoses Chest pain R07.9 Atrial fibrillation I48.91 HTN (hypertension) I10 Degenerative disc disease Obesity (BMI 30.0-34.9) E66.9
[2022-04-17] MEDS: sotalol 80 mg Tablet PO ×2 (09:36→20:03)
[2022-04-17] MEDS: aspirin 81 mg EC Tablet PO (09:36)
--- NOTE | 2022-04-17 09:47 | PC.NURSE ---
to cardiac laborer plumbing via w/c at 0715.
--- NOTE | 2022-04-17 09:47 | PC.NURSE ---
received from cardiac laboratory cureman at 0830 via bed.report received.pt is alert and oriented x 4.denies pain.afib at controlled rate on monitor.right radial artery tr band on and inflated.right hand is warm to touch and with brisk capillary refill.palpable radial pulse noted distal to tr band.no hematoma noted.right femoral arterial sheath intact to pressurized system.right groin drsg is dry and intact.no hematoma noted.right leg is warm to touch and with brisk capillary refill.palpable pedal pulses noted.instructed pt in activity restrictions s/p radial and artery procedures..and instructed to notify staff for any bleeding,pain,chest pain,sob,or for any concerns at all.pt verb understanding of instructions
--- NOTE | 2022-04-17 11:36 | ECG_ITS ---
[facility] Test Date: 2022-04-17 Pat Name: Zachary Ahumada Department: Room: 276 Gender: Male Square Shear Operator: : 1945 Requested By: Sarah Rodriguez Order Number: [id number] Gretchen MD: Sarah Rodriguez M.D. Measurements Intervals [place] Rate: 79 P: TX: QRS: 10 QRSD: 89 T: 5 QT: 373 QTc: 429 Interpretive Statements ATRIAL FIBRILLATION ABNORMAL RHYTHM ECG Compared to ECG 04/17/2022 00:32:48 No significant changes Electronically Signed On 04-17-2022 13:08:09 CDT by Sarah Rodriguez M.D. [email or web address].[employer]/store/[id number]
--- NOTE | 2022-04-17 12:58 | PC.NURSE ---
right femoral arterial sheath pulled at 1055.manual pressure held x 20 min.vss through-out procedure.no hematoma formation noted.site dressed with 2x2 gauze and secured with biocclusive drsg.pt instructed in activity restrictions s/p femoral sheath removal...and instructed to notify staff for any bleeding,pain,numbness,or for any concerns at all.pt verb understanding of instructions
--- NOTE | 2022-04-17 14:19 | PC.NURSE ---
tr band slowly deflated and eventually removed at 1300.right hand remains warm to touch and with brisk capillary refill.palpable radial pulse noted.no hematoma formation noted.site dressed with 2x2 gauze and secured with biocclusive drsg.pt instructed in activity restrictions s/p tr band removal..and instructed to notify staff for any bleeding,pain,bruising,numbness..or for any conerns at all.pt verb understanding of instructions
--- NOTE | 2022-04-17 16:32 | P.PN_ITS ---
Subjective Subjective: Patient underwent left heart cath today: Which showed nonobstructive coronary artery disease. Medications: Medication Review Details: Generic Name Dose Route Start Last Admin Trade Name Luz PRN Reason Stop Dose Admin Aspirin 81 mg 04/17/22 09:00 04/17/22 09:38 Aspirin 81 Mg Ec Tablet PO Not Given DAILY BHAVIN Sodium Chloride 1,000 mls @ 50 ml s/hr 04/17/22 06:00 04/17/22 09:36 Sodium Chloride 0.9% IV 04/18/22 01:59 50 mls/hr .Q20H ONE Administration Sodium Chloride 1,000 mls @ 100 m ls/hr 04/17/22 08:30 04/17/22 08:35 Sodium Chloride 0.9% IV 100 mls/hr .Q10H BHAVIN Administration Sotalol HCl 80 mg 04/15/22 20:00 04/17/22 09:36 Sotalol 80 Mg Ta blet PO 80 mg 08,1999 BHAVIN Administration Vitals/I&O/Wt Last Vital Signs Temp 98.2 F 04/17/22 08:00 Pulse 79 04/17/22 14:00 Resp 18 04/17/22 13:00 BP 120/85 04/17/22 13:00 Pulse Ox 94 04/17/22 14:00 O2 Del Method 04/17/22 14:00 04/17/22 04/17/22 04/17/22 06:59 14:59 22:59 Intake Total 431.667 / 431.667 Balance 431.667 / 431.667 Weight last 48 hrs Weight 112.627 kg Weight 113.988 kg Weight 113.988 kg Physical Exam Const: COMMON NORMALS: patient oriented x3 HENMT: COMMON NORMALS: normocephalic and atraumatic HEAD & SCALP: normocephalic and atraumatic Resp: COMMON NORMALS: normal respiratory effort, No retractions, No use of accessory muscles and clear to auscultation bilaterally EFFORT & INSPECTION: Yes symmetric chest movement AUSCULTATION: clear to auscultation bilaterally Cardio: COMMON NORMALS: regular rate, regular rhythm, S1 normal heart sound present, S2 normal heart sound present, No gallops present (Cardio), No murmurs present (Cardio), No rub (Cardio) and Peripheral pulses 2+ throughout RATE: regular rate RHYTHM: regular rhythm HEART SOUNDS: S1 normal heart sound present and S2 normal heart sound present PERIPHERAL PULSES: Peripheral pulses 2+ throughout GI: COMMON NORMALS: Normal to inspection, nondistended, normoactive bowel sounds present, Soft to palpation, non-tender, No hepatosplenomegaly present and no masses AUSCULTATION: Yes normoactive bowel sounds PALPATION: Yes Soft to palpation and Yes No hepatosplenomegaly present RECTAL EXAM: Yes deferred Extremity: COMMON NORMALS: no clubbing, cyanosis or edema and no pedal edema Neuro: COMMON NORMALS: patient oriented x3 Data : 04/17/22 05:15 04/17/22 05:15 A&P Assessment and plan (1) HTN (hypertension): Status: Acute (2) Atrial fibrillation: Status: Acute (3) Chest pain: Status: Acute Plan 76 year old male with past medical history of atrial fibrillation on Eliquis at home, history of prior cardioversion, prior ablation in 2018, hypertension, came in with chief complaint of ongoing left-sided chest pain squeezing type radiating to left arm and neck, started this morning, got relieved with Nitropaste in the ER, denies any associated diaphoresis, palpitation at that time ,shortness of breath, fever cough, nausea vomiting. Assessment: Chest pain: Likely related to A. fib A. fib Hypertension Plan: Patient has recent nuclear stress test done: No significant perfusion abnormality. Recent 2D echo: Normal left ventricular size, systolic function and wall ?thickness, with no regional wall motion abnormalities. Rhythm precludes evaluation of diastolic function. Left ventricular ejection fraction is estimated at 55 %. Mildly increased left atrial size. Structurally normal mitral valve. Moderate mitral valve regurgitation. Current plan is to start patient on sotalol, continue therapeutic anticoagulation with Eliquis. Planning underway for DELON cardioversion possibly in the morning. S/p left heart cath: Nonocclusive coronary artery disease. CODE STATUS: Full code DVT prophylaxis : Not needed on therapeutic Lovenox. Attestations Medical Necessity Statement*: Patient needs to be in hospital for DELON cardioversion Coding Level of Care Code Acute Field Advisor for [facility] Fwd Exam Detailed Diagnoses HTN (hypertension) I10 Atrial fibrillation I48.91 Chest pain R07.9
--- NOTE | 2022-04-17 19:00 | PC.NURSE ---
Patients right wrist site has dressing that is dry and intact, site is soft, no hematoma present, radial pulse is palpable, and patient denies tenderness. Right groin site is soft, no hematoma present, dressing is stained but intact. Drainage was marked.
[2022-04-17] MEDS: atorvastatin 40 mg Tablet 20 MG PO (20:03)
[2022-04-17] MEDS: apixaban 5 mg Tablet PO (20:03)
--- NOTE | 2022-04-17 22:16 | ECG_ITS ---
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 Measurements Intervals [place] Rate: 90 P: [place]: QRS: 12 QRSD: 102 T: 7 QT: 386 QTc: 474 Interpretive Statements ATRIAL FIBRILLATION ABNORMAL RHYTHM ECG Compared to ECG 04/17/2022 11:36:01 No significant changes Electronically Signed On 04-18-2022 8:33:02 CDT by Sarah Rodriguez M.D. [id number]
[2022-04-18] VITALS (24 sets, daily range): BP systolic 83–142; BP diastolic 58–115; PULSE 59–117; RESP 12–21; TEMP 36.8–37.1; O2SAT 94–100
--- NOTE | 2022-04-18 | PC.NURSE ---
Patients right wrist site has dressing that is dry and intact, site is soft, no hematoma present, radial pulse is palpable, and patient denies tenderness. Right groin site is soft, no hematoma present, dressing is stained but intact.
[2022-04-18 05:32] LABS: Basophils % 0.5 %; Eosinophils # 0.2 10^3/uL (0.0-0.8); Eosinophils % 2.6 %; Hematocrit 49.9 % (42.0-52.0); Hemoglobin 16.5 g/dL (11.7-16.6); Lymphocytes % 27.5 %; Mean Corpuscular HGB Conc 33.1 g/dL (30.0-36.0); Mean Corpuscular Hemoglobin 31.3 pg (28.0-34.0); Mean Corpuscular Volume 94.5 fl (80-94); Mean Platelet Volume 11.3 fL (7.4-10.4); Monocytes # 0.6 10^3/uL (0.2-0.9); Monocytes % 8.3 %; Neutrophils # 4.46 10^3/uL (1.8-7.7); Nucleated Red Blood Cells % 0 %; Platelet Count 168 10^3/cmm (130-400); Red Blood Count 5.28 10^6/uL (4.1-5.3); Red Cell Distribution Width 12.8 % (12.1-15.1); White Blood Count 7.3 10^3/uL (4.0-10.0)
[2022-04-18 05:54] LABS: Alanine Aminotransferase 13 U/L (0-41); Albumin Level 3.8 g/dL (3.5-5.2); Alkaline Phosphatase 58 U/L (40-130); Anion Gap 12.1 (5-19); Aspartate Amino Transferase 18 U/L (0-40); Blood Urea Nitrogen 18 mg/dL (8-23); Calcium 9.1 mg/dL (8.5-10.5); Carbon Dioxide 25 mmol/L (22-29); Chloride 108 mmol/L (98-107); Globulin 2.5 g/dL (1.3-4.6); Glucose 92 mg/dL (65-115); Osmolality Calculated 294 mOsm/kg (285-295); Potassium 4.1 mmol/L (3.5-5.1); Sodium 141 mmol/L (136-145); Total Bilirubin 0.9 mg/dL (0.15-1.2); Total Protein 6.3 g/dL (6.6-8.7)
[2022-04-18] MEDS: sotalol 80 mg Tablet PO (08:23)
[2022-04-18] MEDS: apixaban 5 mg Tablet PO (08:25)
[2022-04-18] MEDS: aspirin 81 mg EC Tablet PO (08:25)
--- NOTE | 2022-04-18 08:52 | P.PN_ITS ---
Subjective Subjective: Patient successfully underwent DELON cardioversion this morning Medications: Reviewed: Yes Vitals/I&O/Wt Last Vital Signs Temp 98.4 F 04/18/22 07:49 Pulse 75 04/18/22 07:49 Resp 18 04/18/22 07:49 BP 104/84 04/18/22 07:49 Pulse Ox 94 04/18/22 07:49 O2 Del Method 04/18/22 07:49 04/17/22 04/18/22 04/18/22 22:59 06:59 14:59 Intake Total 2210 / 2641.667 Output Total 600 / 600 Balance 1610 / 2041.667 Weight last 48 hrs Weight 245 lb 4 oz Weight 248 lb 4.8 oz Physical Exam Narrative: GENERAL: obese man sitting in bedin no acute distress HEENT: Extraocular movement intact. No pallor or icterus. NECK: central trachea, No JVD, No carotid bruit. CARDIOVASCULAR SYSTEM: S1-S2 irregular. No murmur rubs or gallops. RESPIRATORY SYSTEM: Chest clear to auscultation. No wheezes rhonchi or rubs heard. No use of accessory muscles. ABDOMEN: Soft, nontender and nondistended. Normal bowel sounds present. EXTREMITIES: No cyanosis or clubbing. No edema. No signs of chronic venous insufficiency. DIVISIONAL HUMAN RESOURCES DIRECTOR: Patient is alert oriented ?3. No focal neurological deficits. SKIN: Normal turgor and temperature. No breakdown, rash or nail changes noted. PSYCH: Normal insight and judgment. No suicidal or homicidal ideations. Const: COMMON NORMALS: alert Resp: COMMON NORMALS: clear to auscultation bilaterally AUSCULTATION: clear to auscultation bilaterally Neuro: SENSORIUM/ORIENTATION: Yes alert Data : 04/18/22 05:15 04/18/22 05:15 A&P Assessment and plan (1) Chest pain: CAD risk factors of age, sex and possibly family h/o CAD in mother (massive heart attack per patient in her 70's). He is non smoker and does not chew tobacco. No DM-2 or hyperlipidemia. -CP different in nature than before -normal recent stress test. No obstructive CAD on [facility] Status: Acute (2) Atrial fibrillation: -On sotalol 80 mg BID and Eliquis -s/p successful DELON/CV with scientology of sinus rhythm -Patient will need EKG 2 hours after each sotalol dose. -EKG with acceptable QT/QTc intervals. -Patient may be discharged later today. -Follow-up with Kirstie in 1 week at [facility]. -Follow-up with in 2 months. Status: Acute (3) HTN (hypertension): well controlled Status: Acute (4) Degenerative disc disease: Status: Acute (5) Obesity (BMI 30.0-34.9): Status: Acute Attestations Medical Necessity Statement*: Stable to be discharged later today. Procedures Time out/Consent Time Out Performed: Yes Consent for Procedure: Consent obtained from patient, Risks & Benefits reviewed and Agrees to proceed with procedure Procedure Narrative DELON Procedure note Indication: Symptomatic atrial fibrillation Sedation: Propofol by anesthesia Procedure was explained to the patient in detail and informed consent was obtained. Timeout was called. After achieving adequate sedation, the probe was inserted on first attempt. No blood on the probe post procedure. Prelim report: No left atrial or left atrial appendage mass or thrombus visualized. No ASD or PFO identified. Full report to follow. Cardioversion procedure note. Indication: Symptomatic atrial fibrillation Anticoagulation: Eliquis Sedation: Propofol by anesthesia After ensuring no left atrial/left atrial appendage thrombus, pads were placed anteroposteriorly. [He received 150 J of synchronized biphasic shock ?1 with scientology of normal sinus rhythm. Patient tolerated the procedure well. Recovery: In unit Coding Level of Care Code Acute Review Rn for Chg Fwd Exam Expanded Problem Focused Diagnoses Chest pain R07.9 Atrial fibrillation I48.91 HTN (hypertension) I10 Degenerative disc disease Obesity (BMI 30.0-34.9) E66.9
--- NOTE | 2022-04-18 10:12 | PC.NURSE ---
1012 AM- Time out. Pt verified and asked what procedure he is going to have, pt verified of the procedure will be DELON w/ cardioversion. Aneasthesiologist at bedside for IV sedation and airway mgt. Dr Rodriguez at bedside. VALERIA Morales at bedside to assist DELON. 1025 AM synchronized cardioversion w/150 joules done . pt converted back from Afib to SR w/ occ PAC's. EKG taken. VS monitored.
--- NOTE | 2022-04-18 10:41 | ECG_ITS ---
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 Measurements Intervals [place] Rate: 70 P: -39 MO: 193 QRS: 15 QRSD: 105 T: 25 QT: 424 QTc: 459 Interpretive Statements SINUS RHYTHM WITH OCCASIONAL SUPRAVENTRICULAR PREMATURE COMPLEXES LOW QRS VOLTAGE IN PRECORDIAL LEADS [QRS DEFLECTION < 1.0 mV IN CHEST LEADS] Compared to ECG 04/17/2022 22:16:10 Low QRS voltage now present Atrial fibrillation no longer present Electronically Signed On 04-18-2022 19:06:00 CDT by Sarah Rodriguez M.D. [id number]
--- NOTE | 2022-04-18 10:44 | PC.SOCIAL ---
IMM update IMM updated with patient. Verbalized an understanding. Copy Pg 2 provided. Initialled, dated, timed, and placed in chart.
--- NOTE | 2022-04-18 11:01 | P.ANESASSM_ITS ---
Pre-Anesthetic Assessment Height/Weight: Height 1.85 m Weight 111.244 kg Temp Pulse Resp BP Pulse Ox O2 Del Method 98.4 F 75 18 104/84 94 04/18/22 07:49 04/18/22 07:49 04/18/22 07:49 04/18/22 07:49 04/18/22 07:49 04/18/22 07:49 Preop Diagnosis: Worsening chset pain Operation Date: 04/17/22 07:30 Proposed Procedures p Cardiac Catheterization(Left) - Sarah Rodriguez MD Familial anesthetic complications: none Was Beta Grabiel taken within 24 hours: Yes Was Clonidine taken within 24 hours: N/A Social No alcohol and No tobacco Exam alert, oriented x 3 and clear to auscultation bilaterally irregular Airway Submandibular: within normal limits Cervical ROM: within normal limits Mallampati: Class II Dentition: false (upper) CV/HEM Atrial Fibrillation and Hypertension Metabolic Morbid Obesity Musc/skel Osteoarthritis/DJD Anesthetic Plan ASA status: 3 Anesthesia: MAC Medications/Allergies Home Medications Medication Instructions Recorded Confirmed Last Taken Type acetaminophen 500 mg tablet 1,000 mg PO Q6H PRN Pain 04/05/22 04/15/22 Unknown History fluticasone propionate 50 2 spray intranasal DAILY PRN 04/05/22 04/15/22 Unknown History mcg/actuation nasal Allergy Symptoms spray,suspension albuterol sulfate 90 mcg/actuation 2 puff inhalation QID PRN 04/07/22 04/15/22 Unknown Rx aerosol inhaler (ProAir HFA) Shortness Of Breath #8.5 grams apixaban 5 mg tablet (Eliquis) 5 mg PO BID #60 tabs 04/07/22 04/15/22 04/15/22 Rx cetirizine 10 mg tablet 10 mg PO DAILY PRN Allergy Symptoms 04/15/22 04/15/22 Unknown History metoprolol succinate 100 mg 100 mg PO BID 04/15/22 04/15/22 04/15/22 History tablet,extended release 24 hr Allergies Allergy/AdvReac Type Severity Reaction Status Date / Time No Known Allergies Allergy Verified 04/15/22 11:06 Current Medications Generic Name Dose Route Start Last Admin Trade Name Freq PRN Reason Stop Dose Admin Apixaban 5 mg 04/17/22 21:00 04/18/22 08:25 Apixaban 5 Mg Tablet PO 5 mg BID@0900,2100 BHAVIN Administration Aspirin 81 mg 04/17/22 09:00 04/18/22 08:25 Aspirin 81 Mg Ec Tablet PO 81 mg DAILY BHAVIN Administration Atorvastatin Calcium 20 mg 04/17/22 21:00 04/17/22 20:03 Atorvastatin 40 Mg Tablet PO 20 mg BEDTIME BHAVIN Administration Sodium Chloride 1,000 mls @ 100 mls/hr 04/17/22 08:30 04/18/22 02:30 Sodium Chloride 0.9% IV Not Given .Q10H BHAVIN Sotalol HCl 80 mg 04/15/22 20:00 04/18/22 08:23 Sotalol 80 Mg Tablet PO 80 mg 0800,1999 BHAVIN Administration [facility] Anesthesia Medical History (Updated 04/15/22 @ 19:27 by Sarah Rodriguez MD) Asthma Atrial fibrillation intermittent Chest pain Chronic anticoagulation eliquis due to afib Degenerative disc disease Has associated chronic back pain History of cardioversion at time of initial afib diagnosis some years ago as well as in [address] 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 Data Anesthesia : 04/18/22 05:15 04/18/22 05:15 Short CBC 04/17/22 04/18/22 Range/Units 05:15 05:15 WBC 6.9 7.3 (4.0-10.0) 10^3/uL Hgb 16.0 16.5 (11.7-16.6) g/dL Hct 47.8 49.9 (42.0-52.0) % MCV 93.5 94.5 H (80-94) fl Plt Count 184 168 (130-400) 10^3/cmm Neut % (Auto) 60.9 61.0 % Neut # (Auto) 4.22 4.46 (1.8-7.7) 10^3/uL BMP 04/17/22 04/18/22 05:15 05:15 Sodium 139 141 Potassium 4.2 4.1 Chloride 105 108 H Carbon Dioxide 26 25 BUN 17 18 Creatinine 1.0 1.1 Glucose 82 92 Calcium 8.9 9.1 Liver Function 04/17/22 04/18/22 Range/Units 05:15 05:15 Total Bilirubin 0.8 0.9 (0.15-1.2) mg/dL AST 14 18 (0-40) U/L ALT 12 13 (0-41) U/L Alkaline Phosphatase 57 58 (40-130) U/L Albumin 4.0 3.8 (3.5-5.2) g/dL Cardiac Studies: Echocardiogram 04/05/22 Sestamibi Stress Test (Cardiology) 04/05
--- NOTE | 2022-04-18 11:02 | ANE.PACU2 ---
Inpatient post-anesthesia follow up: Airway intact: Yes Vital signs: Temperature 98.4 F Pulse Rate 75 Respiratory Rate 18 Blood Pressure 104/84 Pulse Oximetry 94 Oxygen Delivery Me thod [ Room Air Current Rate & Del bharat] Oxygen Delivery Me thod Room Air Oxygen Flow Rate Fraction of Inspir ed Oxygen Hydration adequate: Yes Nausea and vomiting: No Pain level: 2 Mental status: Baseline
--- NOTE | 2022-04-18 12:09 | USCV_ITS ---
Zachary Ahumada Age: 76 Gender: M : 1945 Exam Date: 04/18/2022 09:56 Ordering Phys: Sarah Rodriguez MD ([email or web address]) Technologist: Andrew Enriquez Exam Location: [facility] [place] Indication: Symptomatic atrial fibrillation BP: / HR: Rhythm: Sinus Technical Quality: Adequate MEASUREMENTS (Male / Female) Normal Values Medications Patient given IV sedation by anesthesia service, for details please refer to the anesthesia report. Complications Intubation east. Attempts x 1. No blood on probe post procedure. Patient tolerated the procedure well. Proc. Components The DELON probe was passed into the posterior pharynx , mid- esophagus, distal esophagus, and gastric fundus. FINDINGS Left Ventricle Normal left ventricular cavity size. Mildly decreased left ventricular systolic function. Left ventricular ejection fraction is estimated at 50 %. Mild global hypokinesis. Right Ventricle Normal right ventricular size and systolic function. Right Atrium Normal right atrial size. Left Atrium Moderately increased left atrial size. LA Appendage Normal left atrial appendage. No thrombus visualized in the left atrial appendage. IA Septum Normal interatrial septum. No patent foramen ovale. No evidence for an atrial septal defect. Mitral Valve Structurally normal mitral valve. No mitral valve stenosis. Mild mitral valve regurgitation. Aortic Valve Structurally normal trileaflet aortic valve. No aortic valve stenosis. No aortic valve regurgitation. Tricuspid Valve Structurally normal tricuspid valve. Trace tricuspid valve regurgitation. Pulmonic Valve Structurally normal pulmonic valve. No pulmonary valve stenosis. Trace pulmonary valve regurgitation. Pericardium No pericardial effusion. Aorta Normal size aortic root and proximal ascending aorta. No aortic dilation, aneurysm or dissection. Grade III atheroma in proximal descending aorta. CONCLUSIONS 1. Normal left ventricular cavity size. Mildly decreased left ventricular systolic function. Left ventricular ejection fraction is estimated at 50 %. Mild global hypokinesis. 2. Normal right ventricular size and systolic function. 3. No LA or DELMER thrombus. 4. Mild mitral valve regurgitation. Sarah Rodriguez MD (Electronically Signed) Final Date: 21 April 2022 13:59 S
[2022-04-18 13:11] LABS: SARS Covid-2 Antigen Negative (Negative)
--- NOTE | 2022-04-18 14:52 | P.DS_ITS ---
Discharge Providers Date of Admission: 04/15/22 13:52 Date of Discharge: April 18, 2022 Attending Provider at Admission: Juan Webb MD Attending Provider at Discharge: Adalberto Morton MD Consults: Sarah Rodriguez MD Cardiology Primary Care Provider: Mike Arzate Diagnoses at Discharge Discharge Diagnosis (1) Chest pain: Details from hospital stay: non occlusive CAD and afib RVR, resolved after cardioversion Status: Acute (2) Atrial fibrillation: Details from hospital stay: cardioverted this AM Status: Acute Permanent problem details: intermittent (3) HTN (hypertension): Details from hospital stay: med change from metoprolol to sotalol Status: Acute (4) Degenerative disc disease: Details from hospital stay: stable Status: Acute Permanent problem details: Has associated chronic back pain (5) Obesity (BMI 30.0-34.9): Details from hospital stay: stable Status: Acute Reason for Visit Reason for Visit: chest pain/left side pain Brief History: Patient says he stopped his medications for about 6 months then went to his [place] physician was lectured and started back on his medications a week ago. He developed chest pain and came to the hospital Hospital Course Hospital Course Patient had reassuring nuclear medicine test 03/2022. With his new chest pain he did undergo left heart cath yesterday and DELON ED today with cardioversion. He feels well at this time and is ready for discharge. Blood pressure and heart rate are controlled and in sinus rhythm Patient states he will take his medications as prescribed. Potassium was 4.1 magnesium not checked Patient was shocked with 150 J biphasic x1 with anesthesia. Physical Exam Narrative: General well-developed well-nourished overweight male in no acute cardiopulmonary stress he is alert oriented pleasant CV regular rate and rhythm Lungs clear to auscultation bilaterally Abdomen positive bowel sounds soft nontender Calves nontender no pretibial edema Chest x-ray borderline cardiomegaly on anterior portable film no heart failure seen Discharge Data Studies Completed and Pending Completed Studies During Hospitalization Category Date Time Status XR chest 1V portable [id number] Stat Exams 04/15/22 10:20 Completed Pending at discharge Category Date Time Status [employer] request for service Routine Exams 04/17/22 06:49 Taken CV. echo transesophageal [id number] Routine Ultrasound 04/18/22 12:09 Taken Radiology Impressions Chest X-Ray 04/15/22 10:20 IMPRESSION: 1. Mild right upper lobe infiltrate. Pneumonia is not excluded. 2. No other significant finding. Laboratory Results WBC 7.3 10^3/uL (4.0-10.0) 04/18/22 05:15 RBC 5.28 10^6/uL (4.1-5.3) 04/18/22 05:15 Hgb 16.5 g/dL (11.7-16.6) 04/18/22 05:15 Hct 49.9 % (42.0-52.0) 04/18/22 05:15 MCV 94.5 fl (80-94) H 04/18/22 05:15 MCH 31.3 pg (28.0-34.0) 04/18/22 05:15 MCHC 33.1 g/dL (30.0-36.0) 04/18/22 05:15 RDW 12.8 % (12.1-15.1) 04/18/22 05:15 Plt Count 168 10^3/cmm (130-400) 04/18/22 05:15 MPV 11.3 fL (7.4-10.4) H 04/18/22 05:15 Neut % (Auto) 61.0 % 04/18/22 05:15 Lymph % (Auto) 27.5 % 04/18/22 05:15 [place] % (Auto) 8.3 % 04/18/22 05:15 Eos % (Auto) 2.6 % 04/18/22 05:15 Baso % (Auto) 0.5 % 04/18/22 05:15 Neut # (Auto) 4.46 10^3/uL (1.8-7.7) 04/18/22 05:15 Lymph # (Auto) 2.0 10^3/uL (0.8-4.8) 04/18/22 05:15 [place] # (Auto) 0.6 10^3/uL (0.2-0.9) 04/18/22 05:15 Eos # (Auto) 0.2 10^3/uL (0.0-0.8) 04/18/22 05:15 Baso # (Auto) 0.0 10^3/uL (0.0-0.1) 04/18/22 05:15 Nucleated RBC % (auto) 0 % 04/18/22 05:15 Nucleated RBCs # 0.0 /100WBC 04/18/22 05:15 Sodium 141 mmol/L (136-145) 04/18/22 05:15 Potassium 4.1 mmol/L (3.5-5.1) 04/18/22 05:15 Chloride 108 mmol/L (98-107) H 04/18/22 05:15 Carbon Dioxide 25 mmol/L (22-29) 04/18/22 05:15 Anion Gap 12.1 (5-19) 04/18/22 05:15 BUN 18 mg/dL (8-23) 04/18/22 05:15 Creatinine 1.1 mg/dL (0.7-1.2) 04/18/22 05:15 GFR Calculation Not Reportable 04/18/22 05:15 Glucose 92 mg/dL (65-115) 04/18/22 05:15 Calculated Osmolality 294 mOsm/kg (285-295) 04/18/22 05:15 Calcium 9.1 mg/dL (8.5-10.5) 04/18/22 05:15 Magnesium 2.0 mg/dL (1.7-2.3) 04/18/22 05:15 Total Bilirubin 0.9 mg/dL (0.15-1.2) 04/18/22 05:15 AST 18 U/L (0-40) 04/18/22 05:15 ALT 13 U/L (0-41) 04/18/22 05:15 Alkaline Phosphatase 58 U/L (40-130) 04/18/22 05:15 Troponin T Baseline 12 ng/L (0-15) 04/15/22 10:42 Troponin T 120 Minute 10.28 ng/L (0-15) 04/15/22 12:51 Delta Troponin T -1.72 ABS# (0-10) L 04/15/22 12:51 Troponin T Hi Sens 6Hr 9.49 ng/L (0-15) 04/15/22 17:00 Troponin T Hi Sens 6Hr Delta -2.59 ng/L (0-12) L 04/15/22 17:00 Total Protein 6.3 g/dL (6.6-8.7) L 04/18/22 05:15 Albumin 3.8 g/dL (3.5-5.2) 04/18/22 05:15 Globulin 2.5 g/dL (1.3-4.6) 04/18/22 05:15 Urine Color Yellow (Yellow) 04/16/22 00:06 Urine Appearance Clear (CLEAR) 04/16/22 00:06 Urine pH 6 (5-7) 04/16/22 00:06 Ur Specific [place] 1.015 (1.005-1.030) 04/16/22 00:06 Urine Protein Neg (Negative) 04/16/22 00:06 Urine Glucose (UA) Norm (Normal) 04/16/22 00:06 Urine Ketones Negative (Negative) 04/16/22 00:06 Urine Blood Neg (Negative) 04/16/22 00:06 Urine Nitrate Negative (Negative) 04/16/22 00:06 Urine Bilirubin Neg (Negative) 04/16/22 00:06 Urine Urobilinogen Neg mg/dL (Negative) 04/16/22 00:06 Ur Leukocyte Esterase Negative (Negative) 04/16/22 00:06 SARS-CoV-2 Ag (Rapid) Negative (Negative) 04/18/22 12:41 Vitals Last Vital Signs Temp 98.4 F 04/18/22 07:49 Pulse 75 04/18/22 07:49 Resp 18 04/18/22 07:49 BP 104/84 04/18/22 07:49 Pulse Ox 94 04/18/22 07:49 O2 Del Method 04/18/22 07:49 Discharge Plan Discharge Patient Disposition: Home Condition: Stable Prescriptions: New nitroglycerin 0.4 mg Tablet, Sublingual 0.4 mg sublingual Q5M PRN (Reason: Chest Pain) Qty: 30 0RF sotalol 80 mg Tablet 80 mg PO 799,1999 Qty: 60 3RF atorvastatin 40 mg Tablet 20 mg PO BEDTIME Qty: 30 3RF aspirin 81 mg Tablet,Delayed Release (Dr/Ec) 81 mg PO DAILY Qty: 30 3RF Continued acetaminophen 500 mg Tablet 1,000 mg PO Q6H PRN (Reason: Pain) fluticasone propionate 50 mcg/actuation [place],Suspension 2 spray INTRANASAL DAILY PRN (Reason: Allergy Symptoms) Rx Instructions: administer into each nostril Eliquis 5 mg tablet 5 mg PO BID Qty: 60 3RF albuterol sulfate [ProAir HFA] 90 mcg/actuation HFA aerosol inhaler 2 puff INHALATION QID PRN (Reason: Shortness Of Breath) Qty: 8.5 4RF cetirizine 10 mg Tablet 10 mg PO DAILY PRN (Reason: Allergy Symptoms) Discontinued metoprolol succinate 100 mg Tablet Extended Release 24 Hr 100 mg PO BID Discharge Orders: Discharge Order (Routine); Ordered 04/18/22 Ordered By: Adalberto Morton Referrals: Kirstie Foster FNP [Nurse Practitioner] - 7-10 days Mike Arzate [Primary Care Provider] - Sarah Rodriguez MD [Physician] - 2 months Discharge Diet: Cardiac Discharge Activity: Resume usual activity Patient Instructions: Opioid Safety Activity Restrictions/Additional Instructions: Do not lift anything more than 5 lbs for 1 week. Keep the site dry and clean Take medications as prescribed and follow up as scheduled. Blood pressure and heart rate log x 2 weeks Discharge Attestations Time Spent in Discharge Care*: greater than 30 min Quality Metrics Clinical Quality Measures [ No reported AMI, CVA or VTE this stay] Coding Level of Care Code Established Pt Acute Chg FW DC note Patient Type Established History Detailed Exam Detailed Medical Decision Making Moderate Complexity Diagnoses Chest pain R07.9 Atrial fibrillation I48.91 HTN (hypertension) I10 Degenerative disc disease Obesity (BMI 30.0-34.9) E66.9
== END 2022-04-18 17:08 | disposition home or self-care (01) | DRG 287 ==
LOC: ER 16:50 → ICU 20:36 → MEDSURG 04-16 18:03
PROVIDERS: Internal Medicine Cardiovascular Disease; Physician Assistant; Admitting Provider Internal Medicine; Emergency Provider Family Medicine; PCP Family Medicine; Visit Provider Internal Medicine
DX: I48.0 Paroxysmal atrial fibrillation (principal); R07.9 Chest pain, unspecified; J45.909 Unspecified asthma, uncomplicated; G89.29 Other chronic pain; M54.9 Dorsalgia, unspecified; E66.9 Obesity, unspecified; Z68.32 Body mass index [BMI] 32.0-32.9, adult; I10 Essential (primary) hypertension; Z87.891 Personal history of nicotine dependence; I25.10 Atherosclerotic heart disease of native coronary artery without angina pectoris; Z79.01 Long term (current) use of anticoagulants; Z79.51 Long term (current) use of inhaled steroids
CPT/HCPCS: 36415; 71045; 80053; 81003; 83735; 84484; 85025; 87426; 93005; 93312; 93320; 93325; 93454; 94760; 96360; 96372; 99152; 99153; 99285; C1769; C1887; C1894; J1644; J1650; J2250; J2370; J2704; J3010; J3490; J7030; Q0163; Q9967

== ENCOUNTER → 2022-04-25 13:20 | Outpatient (BNVA) | payer OTHER, SELFPAY | PROVIDERS: PCP Family Medicine; Visit Provider Nurse Practitioner Family | DX: I48.91 Unspecified atrial fibrillation (principal); Z79.01 Long term (current) use of anticoagulants; I25.10 Atherosclerotic heart disease of native coronary artery without angina pectoris; Z87.891 Personal history of nicotine dependence | CPT/HCPCS: 80048; 99214 ==

== ENCOUNTER 2022-06-28 09:53 | Emergency (ER) | payer OTHER, SELFPAY ==
[2022-06-28] VITALS (7 sets, daily range): BP systolic 106–120; BP diastolic 76–81; PULSE 72–90; RESP 15–25; TEMP 37.1; O2SAT 95–99; BMI 33.6
--- NOTE | 2022-06-28 10:03 | PC.NURSE ---
pt arrives via EMS for substernal chest pain radiating to left arm, described as sharp and intermittent. pt received 324mg ASA and 1 Nitro en route by EMS with no improvement. Reports hx ablation. Pt reports pain began around 0800 while at rest, worse with exertion. Reports dyspnea, denies N/V/fevers, dizziness, or lightheadedness. Pt able to move himself over from EMS stretcher to ER bed. Pt c/o sharp pain to right side of chest, guarding chest. Lung sounds clear bilat. speech clear, speaking in complete sentences without difficulty. Skin pink/warm/dry.
--- NOTE | 2022-06-28 10:18 | XR_ITS ---
WS: [id number] Exam: XR chest 1V portable [id number] Date/Time of Exam: 06/28/2022 10:24 AM Reason For Exam: chest pain Comparison 04/15/2022. The lungs are fully expanded and clear. Unremarkable cardiomediastinal silhouette. No pleural effusio ns. Several old right rib fractures. XR/XR chest 1V portable [id number] IMPRESSION: 1. No acute cardiopulmonary finding.
--- NOTE | 2022-06-28 10:18 | ECG_ITS ---
[facility] Test Date: 2022-06-28 Pat Name: Zachary Ahumada Department: Room: Gender: Male Women Specialist: : 1945 Requested By: Jonnathan Arrington Order Number: [id number] Reading MD: Arnaldo aP Measurements Intervals [place] Rate: 96 P: 0 [place]: 0 QRS: 22 QRSD: 100 T: 36 QT: 379 QTc: 481 Interpretive Statements ATRIAL FIBRILLATION ABNORMAL RHYTHM ECG Compared to ECG 04/18/2022 10:41:31 Sinus rhythm no longer present Electronically Signed On 06-28-2022 18:01:31 SUPERVISOR [employer]ICATING by Arnaldo Pa [id number]
[2022-06-28 10:31] LABS: Basophils % 0.5 %; Eosinophils # 0.2 10^3/uL (0.0-0.8); Eosinophils % 3.8 %; Hematocrit 50.3 % (42.0-52.0); Hemoglobin 17.1 g/dL (11.7-16.6); Lymphocytes # 1.5 10^3/uL (0.8-4.8); Lymphocytes % 27.3 %; Mean Corpuscular Hemoglobin 31.4 pg (28.0-34.0); Mean Corpuscular Volume 92.5 fl (80-94); Mean Platelet Volume 11.9 fL (7.4-10.4); Monocytes # 0.5 10^3/uL (0.2-0.9); Monocytes % 9.3 %; Neutrophils # 3.27 10^3/uL (1.8-7.7); Neutrophils % 58.7 %; Nucleated Red Blood Cells % 0 %; Platelet Count 183 10^3/cmm (130-400); Red Blood Count 5.44 10^6/uL (4.1-5.3); Red Cell Distribution Width 12.5 % (12.1-15.1); White Blood Count 5.6 10^3/uL (4.0-10.0)
[2022-06-28 10:33] LABS: Slide Review Slide Review Perform
--- NOTE | 2022-06-28 10:42 | ED_ITS ---
HPI - Chest Pain General: Chief Complaint: Chest Pain Stated Complaint: CHEST PAIN Time Seen by Provider: 06/28/22 09:55 Source: patient Mode of arrival: EMS History of Present Illness: 76-year-old male presents emergency room with complaint of chest pain. He was at the [place] clinic he complained with sharp chest pain he gets intermittent bursts of sharp chest pain radiating to his left arm and then it resolves. He has a history of atrial fibrillation he is on Eliquis he was given aspirin and nitro in route the nitro did not seem to make much difference in his symptoms. Earlier this year in March patient had a Lexiscan sestamibi stress test that did abnormal perfusion changes there was a minimally elevated transient ischemic dilation ratio patient 1 week after that test went to the cardiac catheterization. According to the cath report on the chart there was no coronary artery disease. MD complaint: chest pain Onset (ago): minute(s) Timing of current episode: episodic Prior episodes: Yes Onset: during rest Pain location: substernal and subxiphoid Pain radiation: left arm Severity: moderate Quality: tightness, aching and heaviness Relieving factors: nothing Associated symptoms: Deny abdominal pain, diaphoresis, dyspnea, fever(s), leg edema, nausea, palpitations, sense of impending doom, syncope or vomiting Treatment prior to arrival: none Review of Systems Const: Denies: fever(s), fatigue, malaise or diaphoresis ENMT: Denies: throat pain, ear or mastoid pain, nasal discharge or nasal congestion Card: Reports: chest pain; Denies: palpitations, irregular heart rhythm, edema or syncope Resp: Denies: dyspnea GI: Denies: abdominal pain, nausea or vomiting : Denies: flank pain, difficulty urinating, dysuria, urinary frequency or urinary urgency Skin/Breast: Denies: rash or pruritus PFSH ED PFSH: Medical History Asthma Atherosclerosis of coronary artery Atrial fibrillation intermittent Chest pain Chronic anticoagulation eliquis due to afib Degenerative disc disease Has associated chronic back pain History of cardioversion at time of initial afib diagnosis some years ago as well as in [address] 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 Physical Exam Const: COMMON NORMALS: no acute distress GENERAL APPEARANCE: cooperative and comfortable ORIENTATION/CONSCIOUSNESS: Yes awake, Yes oriented to person, Yes oriented to place and Yes oriented to time HENMT: COMMON NORMALS: normocephalic, atraumatic, hearing grossly normal bilaterally, external ears normal, EAC's normal, TM's normal bilaterally, Normal nasal mucous membranes and turbinates present, moist oral mucous membranes and oropharynx normal HEAD & SCALP: normocephalic and atraumatic NOSE: Normal nasal mucous membranes and turbinates present EXTERNAL EAR: Yes external ears normal EXTERNAL AUDITORY CANAL: EAC's normal TYMPANIC MEMBRANE: TM's normal bilaterally Eye: COMMON NORMALS: Equal, round and reactive pupils present, EOMs intact bilaterally, conjunctivae normal and no scleral icterus CONJUNCTIVA: Yes conjunctivae normal PUPIL: Yes Equal, round and reactive pupils present Neck/C-Spine: COMMON NORMALS: full ROM, no lymphadenopathy, supple and no JVD Lymph: LYMPHATIC: no lymphadenopathy noted and no lymphedema noted Resp: COMMON NORMALS: normal respiratory effort, No retractions, No use of accessory muscles and clear to auscultation bilaterally AUSCULTATION: clear to auscultation bilaterally Cardio: COMMON NORMALS: no JVD, regular rate, regular rhythm and No murmurs present (Cardio) RATE: regular rate RHYTHM: regular rhythm GI: COMMON NORMALS: Soft to palpation and No hepatosplenomegaly present AU SCULTATION: Yes normoactive bowel sounds PALPATION: Yes Soft to palpation, No Tenderness to palpation present (GI), No Guarding due to palpation present (GI) and Yes No hepatosplenomegaly present Extremity: COMMON NORMALS: normal to inspection, capillary refill normal, no clubbing, cyanosis or edema, no calf tenderness and no pedal edema Neuro: SENSORIUM/ORIENTATION: Yes oriented to person, Yes oriented to place and Yes oriented to time Skin: COMMON NORMALS: no rashes or lesions noted GENERAL SKIN EXAM: no rashes or lesions noted Course Vital Signs: Vital signs: Vital Signs Temperature 98.7 F 06/28/22 09:54 Pulse Rate 84 06/28/22 11:15 Respiratory Rate 15 06/28/22 11:15 Blood Pressure 106/76 06/28/22 11:15 Pulse Oximetry 95 06/28/22 11:15 Oxygen Delivery Me thod 06/28/22 09:54 MDM - Chest Pain Medical Decision Making Troponins negative EKG unremarkable patient 6 weeks ago had a completely normal heart catheterization with no findings prior to that he did a Lexiscan sestamibi stress test the only abnormality was slightly elevated transient ischemic dilation ratio. He is asymptomatic at this time his symptoms do not sound cardiac in nature he gets sharp spasming pain that lasts for just a few seconds at a time on the emergency room and then resolves. We will discharge him home on Protonix twice daily and him follow-up with his primary care doctor return if is further problems. Medical Records I reviewed the patient's medical records. Lab Data I reviewed the patient's lab results. : 06/28/22 09:37 06/28/22 09:37 Radiology Impressions Chest X-Ray 06/28/22 10:18 IMPRESSION: 1. No acute cardiopulmonary finding. Laboratory Results WBC 5.6 10^3/uL (4.0-10.0) 06/28/22 09:37 RBC 5.44 10^6/uL (4.1-5.3) H 06/28/22 09:37 Hgb 17.1 g/dL (11.7-16.6) H 06/28/22 09:37 Hct 50.3 % (42.0-52.0) 06/28/22 09:37 MCV 92.5 fl (80-94) 06/28/22 09:37 MCH 31.4 pg (28.0-34.0) 06/28/22 09:37 MCHC 34.0 g/dL (30.0-36.0) 06/28/22 09:37 RDW 12.5 % (12.1-15.1) 06/28/22 09:37 Plt Count 183 10^3/cmm (130-400) 06/28/22 09:37 MPV 11.9 fL (7.4-10.4) H 06/28/22 09:37 Neut % (Auto) 58.7 % 06/28/22 09:37 Lymph % (Auto) 27.3 % 06/28/22 09:37 [place] % (Auto) 9.3 % 06/28/22 09:37 Eos % (Auto) 3.8 % 06/28/22 09:37 Baso % (Auto) 0.5 % 06/28/22 09:37 Neut # (Auto) 3.27 10^3/uL (1.8-7.7) 06/28/22 09:37 Lymph # (Auto) 1.5 10^3/uL (0.8-4.8) 06/28/22 09:37 [place] # (Auto) 0.5 10^3/uL (0.2-0.9) 06/28/22 09:37 Eos # (Auto) 0.2 10^3/uL (0.0-0.8) 06/28/22 09:37 Baso # (Auto) 0.0 10^3/uL (0.0-0.1) 06/28/22 09:37 Nucleated RBC % (auto) 0 % 06/28/22 09:37 Nucleated RBCs # 0.0 /100WBC 06/28/22 09:37 Sodium 134 mmol/L (136-145) L 06/28/22 09:37 Potassium 4.3 mmol/L (3.5-5.1) 06/28/22 09:37 Chloride 100 mmol/L (98-107) 06/28/22 09:37 Carbon Dioxide 24 mmol/L (22-29) 06/28/22 09:37 Anion Gap 14.3 (5-19) 06/28/22 09:37 BUN 14 mg/dL (8-23) 06/28/22 09:37 Creatinine 1.0 mg/dL (0.7-1.2) 06/28/22 09:37 GFR Calculation Not Reportable 06/28/22 09:37 Glucose 102 mg/dL (65-115) 06/28/22 09:37 Calculated Osmolality 279 mOsm/kg (285-295) L 06/28/22 09:37 Calcium 9.1 mg/dL (8.5-10.5) 06/28/22 09:37 Total Bilirubin 0.8 mg/dL (0.15-1.2) 06/28/22 09:37 AST 18 U/L (0-40) 06/28/22 09:37 ALT 15 U/L (0-41) 06/28/22 09:37 Alkaline Phosphatase 58 U/L (40-130) 06/28/22 09:37 Troponin T Baseline 14 ng/L (0-15) 06/28/22 09:37 Total Protein 6.7 g/dL (6.6-8.7) 06/28/22 09:37 Albumin 4.0 g/dL (3.5-5.2) 06/28/22 09:37 Globulin 2.7 g/dL (1.3-4.6) 06/28/22 09:37 Discharge Plan Discharge Patient Disposition: Home Clinical Impression: Chest pain due to gastrointestinal reflux disease Condition: Stable Prescriptions: New pantoprazole 40 mg tablet,delayed release (DR/EC) 40 mg PO BID 14 Days Qty: 28 0RF No Action acetaminophen 500 mg Tablet 1,000 mg PO Q6H PRN (Reason: Pain) fluticasone propionate 50 mcg/actuation [place],Suspension 2 spray INTRANASAL DAILY PRN (Reason: Allergy Symptoms) Rx Instructions: administer into each nostril Eliquis 5 mg tablet 5 mg PO BID Qty: 60 3RF albuterol sulfate [ProAir HFA] 90 mcg/actuation HFA aerosol inhaler 2 puff INHALATION QID PRN (Reason: Shortness Of Breath) Qty: 8.5 4RF cetirizine 10 mg Tablet 10 mg PO DAILY PRN (Reason: Allergy Symptoms) atorvastatin 40 mg Tablet 20 mg PO BEDTIME Qty: 30 3RF sotalol 80 mg Tablet 80 mg PO 0800,2000 Qty: 60 3RF aspirin 81 mg Tablet,Delayed Release (Dr/Ec) 81 mg PO DAILY Qty: 30 3RF nitroglycerin 0.4 mg Tablet, Sublingual 0.4 mg sublingual Q5M PRN (Reason: Chest Pain) Qty: 30 0RF Discharge Orders: Discharge ED (Routine); Ordered 06/28/22 Ordered By: Jonnathan Reid Referrals: Jalyn Perry MD [Primary Care Provider] - Discharge Diet: As Directed Discharge Activity: Increase activity as tolerated Patient Instructions: Opioid Safety, Pain Management Activity Restrictions/Additional Instructions: Add pantoprazole 40 mg twice daily for 2 weeks then once daily. Follow-up with primary care doctor to extend the prescription. Coding Level of Care Code ED Probation Officer for Sridhar Matthews
[2022-06-28 10:45] LABS: Alanine Aminotransferase 15 U/L (0-41); Alkaline Phosphatase 58 U/L (40-130); Anion Gap 14.3 (5-19); Aspartate Amino Transferase 18 U/L (0-40); Blood Urea Nitrogen 14 mg/dL (8-23); Calcium 9.1 mg/dL (8.5-10.5); Carbon Dioxide 24 mmol/L (22-29); Chloride 100 mmol/L (98-107); Globulin 2.7 g/dL (1.3-4.6); Glucose 102 mg/dL (65-115); Osmolality Calculated 279 mOsm/kg (285-295); Potassium 4.3 mmol/L (3.5-5.1); Sodium 134 mmol/L (136-145); Total Bilirubin 0.8 mg/dL (0.15-1.2); Total Protein 6.7 g/dL (6.6-8.7)
[2022-06-28 10:51] LABS: Troponin(5th) Baseline 14 ng/L (0-15)
[2022-06-28] MEDS: lidocaine 2% viscous 15 ML, aluminum-mag hydrox-simethicon 30 ML, sucralfate oral liq 1 GM PO (10:55)
== END 2022-06-28 12:11 | disposition home or self-care (01) ==
PROVIDERS: Emergency Provider Family Medicine; PCP Family Medicine
DX: K21.9 Gastro-esophageal reflux disease without esophagitis (principal); Z79.01 Long term (current) use of anticoagulants; Z79.82 Long term (current) use of aspirin; Z87.891 Personal history of nicotine dependence; I25.10 Atherosclerotic heart disease of native coronary artery without angina pectoris; I10 Essential (primary) hypertension
CPT/HCPCS: 71045; 80053; 84484; 85025; 93005; 99285

== ENCOUNTER → 2023-05-05 09:42 | Outpatient (BNVA) | payer OTHER, SELFPAY | PROVIDERS: PCP Family Medicine; Visit Provider Otolaryngology | DX: H61.23 Impacted cerumen, bilateral (principal); H90.6 Mixed conductive and sensorineural hearing loss, bilateral; H93.13 Tinnitus, bilateral | CPT/HCPCS: 69210; 99202 ==

== ENCOUNTER 2023-08-15 10:56 | Outpatient (CLI) | payer OTHER, SELFPAY ==
[2023-08-15 11:30] VITALS: PULSE 90; RESP 18; O2SAT 96
[2023-08-15] MEDS: albuterol 2.5 mg/3 mL Neb INHALATION (11:30)
[2023-08-15 11:35] VITALS: PULSE 92
== END 2023-08-15 10:57 | disposition home or self-care (01) ==
LOC: RT 10:56
PROVIDERS: PCP Family Medicine; Visit Provider Family Medicine
DX: J42 Unspecified chronic bronchitis (principal); R94.2 Abnormal results of pulmonary function studies
CPT/HCPCS: 94060; 94726; 94729; J7613

== ENCOUNTER → 2023-12-19 14:06 | Outpatient (BNVA) | payer OTHER, SELFPAY | PROVIDERS: PCP Family Medicine; Referring Provider Nurse Practitioner Family; Visit Provider Internal Medicine | DX: I10 Essential (primary) hypertension (principal); I48.91 Unspecified atrial fibrillation; Z87.891 Personal history of nicotine dependence; Z79.01 Long term (current) use of anticoagulants | CPT/HCPCS: 99214 ==

== ENCOUNTER 2024-01-05 10:48 | Day surgery (SDC) | payer OTHER, SELFPAY ==
[2024-01-05 10:59] VITALS: BP 116/91; PULSE 91; RESP 16; TEMP 36.1; O2SAT 94
--- NOTE | 2024-01-05 11:07 | ECG_ITS ---
[facility] Test Date: 2024-01-05 Pat Name: Zachary Ahumada Department: Room: Gender: Male Dog Licenser: : 1945 Requested By: Red Hunt Order Number: [id number] Gretchen MD: Red Hunt M.D. Measurements Intervals [place] Rate: 95 P: 0 [place]: 0 QRS: -16 QRSD: 94 T: -10 QT: 349 QTc: 440 Interpretive Statements ATRIAL FIBRILLATION LOW QRS VOLTAGE IN PRECORDIAL LEADS [QRS DEFLECTION < 1.0 mV IN CHEST LEADS] PATTERN CONSISTENT WITH PULMONARY DISEASE POSSIBLE INFERIOR MYOCARDIAL INFARCTION , OF INDETERMINATE AGE [30 ms Q WAVE IN II/aVF] Compared to ECG 06/28/2022 10:00:14 Low QRS voltage now present Myocardial infarct finding now present Electronically Signed On 01-05-2024 13:10:25 CDT by Red Hunt M.D. [id number]
[2024-01-05 11:08] VITALS: BMI 35.6
[2024-01-05] MEDS: sodium chloride 0.9% 1,000 ML 30 ML IV (11:27)
--- NOTE | 2024-01-05 11:37 | ANES.PREANE2 ---
Pre-Anesthetic Assessment Height/Weight: Height 1.85 m Weight 122.47 kg Temp Pulse Resp BP Pulse Ox O2 Del Method 97.0 F L 91 16 116/91 94 Room Air 01/05/24 10:59 01/05/24 10:59 01/05/24 10:59 01/05/24 10:59 01/05/24 10:59 01/05/24 10:59 Operation Date: 01/05/24 12:00 Proposed Procedures p Cardioversion(Not Applicable) - Michell Sawyer anesthetic complications: None Was Beta Grabiel taken within 24 hours: N/A Was Clonidine taken within 24 hours: N/A Last intake: Intake Last Liquid Date 01/04/24 Last Liquid Time 19:00 Last Solid Date 01/04/24 Last Solid Time 19:00 Social No alcohol and No tobacco Exam alert, oriented x 3, clear to auscultation bilaterally and regular rate & rhythm Airway Mallampati: Class III Dentition: false Pulmonary Shortness of Breath CV/HEM Atrial Fibrillation, Coronary Artery Disease and Hypertension Anesthetic Plan ASA status: 3 Anesthesia: MAC Risk of > 500 ml blood loss (7ml/kg in children): No Medications/Allergies Home Medications Medication Instructions Recorded Confirmed Last Taken Type acetaminophen 500 mg tablet 1,000 mg PO Q6H PRN Pain 04/05/22 01/05/24 01/04/24 History fluticasone propionate 50 2 spray intranasal DAILY PRN 04/05/22 01/05/24 01/02/24 History mcg/actuation nasal Allergy Symptoms spray,suspension albuterol sulfate 90 mcg/actuation 2 puff inhalation QID PRN 04/07/22 01/05/24 01/03/24 Rx aerosol inhaler (ProAir HFA) Shortness Of Breath #8.5 grams apixaban 5 mg tablet (Eliquis) 5 mg PO BID #60 tabs 04/07/22 01/05/24 01/05/24 Rx cetirizine 10 mg tablet 10 mg PO DAILY PRN Allergy Symptoms 04/15/22 01/05/24 01/05/24 History nitroglycerin 0.4 mg sublingual 0.4 mg sublingual Q5M PRN Chest 04/18/22 01/05/24 Unknown Rx tablet Pain #30 tabs sotalol 80 mg tablet 80 mg PO 799,1999 #60 tabs 04/18/22 01/05/24 01/05/24 Rx bupropion HCl 150 mg tablet,12 hr 150 mg PO BID 01/03/24 01/05/24 01/05/24 History sustained-release (Wellbutrin SR) Allergies Allergy/AdvReac Type Severity Reaction Status Date / Time No Known Allergies Allergy Verified 01/03/24 11:52 Current Medications Generic Name Dose Route Start Last Admin Trade Name Luz PRN Reason Stop Dose Admin Sodium Chloride 1,000 mls @ 30 mls/hr 01/05/24 11:00 01/05/24 11:27 Sodium Chloride 0.9% IV 01/06/24 10:59 30 mls/hr .Q24H BHAVIN Administration PFSH Anesthesia Medical History Atherosclerosis of coronary artery Obesity (BMI 30.0-34.9) Degenerative disc disease Has associated chronic back pain Chronic anticoagulation eliquis due to afib Asthma History of cardioversion at time of initial afib diagnosis some years ago as well as [place] [address] 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
--- NOTE | 2024-01-05 12:02 | W.PM.OPSUD ---
Surgery/Procedure H&P Update DATE OF PROCEDURE: January 05, 2024 DATE H&P PERFORMED: 12/19/23 H&P UPDATE INFORMATION: I have reviewed H&P completed within last 30 days, I have examined patient prior to procedure and No changes to prior documentation PREOP DIAGNOSIS: Atrial fibrillation PRIMARY INDICATION FOR PROCEDURE: Atrial fibrillation PLANNED PROCEDURE: Operation Date: 01/05/24 12:00 Proposed Procedures p Cardioversion(Not Applicable) - Red Hunt M.D Anesthesia team available for sedation
--- NOTE | 2024-01-05 12:09 | PM.PROC ---
Procedure Note: Date of procedure: 01/05/24 Pre-procedure diagnosis: Atrial fibrillation Post-procedure diagnosis: other (Normal sinus rhythm) Procedure: We confirmed with patient he has been compliant with eliquis and has not missed any doses in last several months. Last dose was this morning. Anesthesia team sedated patient. We proceeded with synchronized 200J shock x 1 that successfully cardioverted him back to normal sinus rhythm. Performing Provider: Red Hunt Complications: None Condition: stable Disposition: same day (Home) Coding Level of Care Code Acute Code for Martha Cassie
[2024-01-05 12:10] VITALS: BP 123/100; PULSE 74; RESP 19; TEMP 36.8; O2SAT 94
--- NOTE | 2024-01-05 12:32 | ECG_ITS ---
[facility] Test Date: 2024-01-05 Pat Name: Zachary Ahumada Department: Room: Gender: Male [employer]: : [id number] Requested By: Red Hunt Order Number: [id number] Gretchen MD: Red Hunt M.D. Measurements Intervals [place] Rate: 70 P: 20 [place]: 238 QRS: -8 QRSD: 114 T: -4 QT: 409 QTc: 442 Interpretive Statements SINUS RHYTHM WITH FIRST DEGREE AV BLOCK LOW QRS VOLTAGE IN PRECORDIAL LEADS [QRS DEFLECTION < 1.0 mV IN CHEST LEADS] INFERIOR MYOCARDIAL INFARCTION , OF INDETERMINATE AGE [40+ ms Q WAVE AND/OR ST/T ABNORMALITY IN II/aVF] Compared to ECG 01/05/2024 11:07:39 First degree AV block now present Atrial fibrillation no longer present Myocardial infarct finding still present Electronically Signed On 01-05-2024 12:53:54 CDT by Red Hunt M.D. [id number]
[2024-01-05 12:40] VITALS: BP 122/86; PULSE 70; RESP 18; O2SAT 96
--- NOTE | 2024-01-05 12:50 | ANE.PACU2 ---
Inpatient post-anesthesia follow up: Airway intact: Yes Vital signs: Temperature 98.2 F Pulse Rate 70 Respiratory Rate 18 Blood Pressure 122/86 Pulse Oximetry 96 Oxygen Delivery Me thod Room Air Oxygen Flow Rate 4 Fraction of Inspir ed Oxygen Hydration adequate: Yes Nausea and vomiting: No Pain level: 1 Mental status: Baseline
== END 2024-01-05 12:53 | disposition home or self-care (01) ==
PROVIDERS: PCP Family Medicine; Visit Provider Internal Medicine
PROC: 5A2204Z Restoration of Cardiac Rhythm, Single (ICD-10-PCS; principal; 2024-01-05 12:00)
DX: I48.91 Unspecified atrial fibrillation (principal); Z79.01 Long term (current) use of anticoagulants; I25.10 Atherosclerotic heart disease of native coronary artery without angina pectoris; E66.9 Obesity, unspecified; Z68.35 Body mass index [BMI] 35.0-35.9, adult; I10 Essential (primary) hypertension; Z87.891 Personal history of nicotine dependence
CPT/HCPCS: 92960; 93005; J2371; J2704; J7030

== ENCOUNTER → 2024-02-12 15:05 | Outpatient (BNVA) | payer OTHER, SELFPAY | PROVIDERS: PCP Family Medicine; Visit Provider Nurse Practitioner Family | DX: I48.91 Unspecified atrial fibrillation (principal) | CPT/HCPCS: 93005; 99214 ==

== ENCOUNTER 2024-06-10 10:42 | Outpatient (CLI) | payer OTHER, SELFPAY | END 2024-06-10 10:43 | disposition home or self-care (01) | PROVIDERS: PCP Family Medicine; Visit Provider Otolaryngology | DX: J31.0 Chronic rhinitis (principal) | CPT/HCPCS: 36415; 86003 ==

== ENCOUNTER 2024-07-03 07:53 | Outpatient (CLI) | payer OTHER, SELFPAY ==
--- NOTE | 2024-07-03 07:37 | CT_ITS ---
NOTE: Original Signature date and time was: 07/03/24 @ [address] SINUSES TECHNIQUE: Noncontrast CT of the paranasal sinuses with coronal and sagittal reformatted images. CLINICAL INFORMATION: CHRONIC RHINITIS COMPARISON: None. DLP: 363.[address] scans at [facility] use at least one of these dose optimization techniques: automated exposure control; mA and/or kV adjustment per patient size (includes targeted exams where dose is matched to clinical indication); or iterative reconstruction. FINDINGS: Mild nasal septal deviation measuring 3 mm. Mastoid air cells are well aerated. Paranasal sinuses are well aerated. Mild mucosal thickening in the ethmoid air cells. Frontal sinuses are well aerated. Frontoethmoidal recesses are patent. Tiny retention cyst in the RIGHT sphenoid sinus measuring 7 mm. Sphenoid sinuses are patent with mild narrowing sphenoid sinus ostia RIGHT greater than LEFT with mild mucosal thickening. Mild narrowing of the ostiomeatal units bilaterally which are patent. Maxillary sinuses are well aerated. Normal parapharyngeal fat. Normal posterior nasopharynx. Vascular calcification. Partially visualized intracranial contents appear grossly normal. IMPRESSION: 1. Mild nasal septal deviation measuring 3 mm. 2. Paranasal sinuses are well aerated. 3. Tiny retention cyst RIGHT sphenoid sinus measuring 7 mm. 4. Mastoid air cells well aerated. 5. Ostiomeatal units are patent. 6. Vascular calcification. MTDD
== END 2024-07-03 07:54 | disposition home or self-care (01) ==
LOC: RAD 07:54
PROVIDERS: PCP Family Medicine; Visit Provider Otolaryngology
DX: J31.0 Chronic rhinitis (principal); J34.1 Cyst and mucocele of nose and nasal sinus; I67.2 Cerebral atherosclerosis
CPT/HCPCS: 70486

== ENCOUNTER → 2024-09-12 12:57 | Outpatient (BNVA) | payer OTHER, SELFPAY | PROVIDERS: PCP Family Medicine; Visit Provider Internal Medicine | DX: I10 Essential (primary) hypertension (principal); I48.91 Unspecified atrial fibrillation; Z87.891 Personal history of nicotine dependence; Z79.01 Long term (current) use of anticoagulants | CPT/HCPCS: 99214 ==